=== PATIENT | female | born 1960 | race African-American/Black ===

== ENCOUNTER 2019-12-10 10:43 | Outpatient (REF) | payer OTHER, SELFPAY ==
--- NOTE | 2019-12-10 | MM_ITS ---
EXAMINATION: BONE DENSITOMETRY CLINICAL INDICATION: Encounter for screening for osteoporosis. COMPARISON: None (current study represents initial baseline exam). TECHNIQUE: Using a [employer] DXA System (software version: 13.1) manufactured by [employer], dual-energy x-ray absorptiometry was performed of the lumbar spine and left hip. The images are of good technical quality. Summary results are attached. FINDINGS: AP SPINE L1-L4: BMD 0.933 g/cm2, Z-score -1.5, T-score -2.1, osteopenia. LEFT FEMUR, NECK: BMD 0.767 g/cm2, Z-score -1.6, T-score -1.9, osteopenia. LEFT FEMUR, TOTAL: BMD 0.770 g/cm2, Z-score -1.9, T-score -1.9, osteopenia. IDENTIFIED RISK FACTORS: Secondary osteoporosis (part of stomach removed). Menopause. HISTORY OF FRACTURE: None listed. MEDICATIONS: Calcium supplement and/or multivitamin. Vitamin D. IMPRESSION: 1. DIAGNOSIS: Osteopenia based on the lowest T-score value of -2.1 in the lumbar spine applying World Health Organization criteria. 2. 10-YEAR FRACTURE RISK PREDICTION, FRAX: Major osteoporotic fracture (clinical spine, forearm, hip or shoulder) 4.2%. Hip fracture 0.5%. 3. Treatment Recommendations: NOF guidelines recommend consideration for treatment in postmenopausal women and men age 50 and older presenting with the following: -A hip or vertebral (clinical or morphometric) fracture. -T-score less than or equal to -2.5 at the femoral neck or spine after appropriate evaluation to exclude secondary causes. -Low bone mass at the hip or spine and a 10-year fracture probability by FRAX of greater than or equal to 3% for hip fracture or greater than or equal to 20% for major osteoporotic fracture based on the [place] adapted WHO algorithm. 4. Other Recommendations: All treatment decisions require clinical judgment and consideration of individual patient factors, including patient preferences, comorbidities, previous drug use, risk factors not captured in the FRAX model (e.g. frailty, falls, vitamin D deficiency, increased bone turnover, interval significant decline in bone density) and possible under or overestimation of fracture risk by FRAX. Additional medical evaluation for secondary cause of low bone mineral density may be appropriate. FUTURE SCAN RECOMMENDATION: People with diagnosed cases of osteoporosis or at high risk for fracture should have regular bone mineral density tests. For patients eligible for Medicare, routine testing is allowed once every 2 years. The testing frequency can be increased to one year for patients who have rapidly progressing disease, those who are receiving or discontinuing medical therapy to restore bone mass, or have additional risk factors.
== END 2019-12-10 10:44 | disposition home or self-care (01) ==
LOC: HO.MAMMO 10:43
PROVIDERS: Visit Provider Family Medicine
DX: Z13.820 Encounter for screening for osteoporosis (principal); M85.80 Other specified disorders of bone density and structure, unspecified site; Z98.84 Bariatric surgery status; Z79.899 Other long term (current) drug therapy
CPT/HCPCS: 77080

== ENCOUNTER → 2019-12-27 10:31 | Outpatient (BNVA) | payer OTHER, SELFPAY | PROVIDERS: Visit Provider Family Medicine Adult Medicine | DX: M53.3 Sacrococcygeal disorders, not elsewhere classified (principal); Z88.8 Allergy status to other drugs, medicaments and biological substances; Z79.899 Other long term (current) drug therapy | CPT/HCPCS: 99212 ==

== ENCOUNTER 2020-01-05 09:33 | Outpatient (REF) | payer OTHER, SELFPAY ==
--- NOTE | 2020-01-05 09:37 | MM_ITS ---
EXAMINATION: MM SCREENING DIGITAL BREAST TOMOSYNTHESIS, BILATERAL CLINICAL INFORMATION: Screening. Asymptomatic. The lifetime risk of breast cancer based on the Tyrer-Cuzick Model is 5%. COMPARISON: Mammography: 12/19/2017, 09/22/2016 TECHNIQUE: Digital breast tomosynthesis is performed in both the craniocaudal and mediolateral oblique views along with computer-aided detection (CAD). Synthesized 2D images are generated from the tomosynthesis. FINDINGS: There are scattered areas of fibroglandular density (ACR BI-RADS breast composition Category b). There is no developing density or interval mass or architectural abnormality. There are stable coarse grouped calcifications central 3:00 right breast and loosely grouped stable calcifications posterior upper outer left breast. Other benign calcifications are scattered in the breasts. The axilla and skin contours are unremarkable. MM/MM tomosynthesis screening BI IMPRESSION: No significant changes from prior studies. ASSESSMENT: BI-RADS 2: Benign RECOMMENDATION: Routine annual mammography screening. This patient's information was entered into a reminder system with a target due date for their next mammogram.
== END 2020-01-05 09:34 | disposition home or self-care (01) ==
LOC: HO.MAMMO 09:33
PROVIDERS: PCP Family Medicine; Visit Provider Family Medicine
DX: Z12.31 Encounter for screening mammogram for malignant neoplasm of breast (principal)
CPT/HCPCS: 77063; 77067

== ENCOUNTER 2020-01-14 13:32 | Outpatient (REF) | payer OTHER, SELFPAY ==
[2020-01-17 12:47] LABS: HPV mRNA E6/E7 Detected (Not Detected)
== END 2020-01-14 13:33 | disposition home or self-care (01) ==
LOC: HO.LAB 13:32
PROVIDERS: Visit Provider Obstetrics & Gynecology
DX: Z01.419 Encounter for gynecological examination (general) (routine) without abnormal findings (principal)
CPT/HCPCS: 87624; 88141; 88142

== ENCOUNTER 2020-03-04 13:23 | Outpatient (REF) | payer OTHER, SELFPAY | END 2020-03-04 13:24 | disposition home or self-care (01) | LOC: HO.LAB 13:23 | PROVIDERS: Visit Provider Obstetrics & Gynecology | DX: R87.810 Cervical high risk human papillomavirus (HPV) DNA test positive (principal) | CPT/HCPCS: 57456; 88300 ==

== ENCOUNTER → 2020-03-18 11:50 | Outpatient (BNVA) | payer OTHER, SELFPAY | PROVIDERS: Visit Provider Obstetrics & Gynecology | DX: R87.810 Cervical high risk human papillomavirus (HPV) DNA test positive (principal) | CPT/HCPCS: Q3014 ==

== ENCOUNTER 2021-01-19 15:22 | Outpatient (REF) | payer OTHER, SELFPAY ==
--- NOTE | ~2021-01-19 | MM_ITS ---
EXAMINATION: MM SCREENING DIGITAL BREAST TOMOSYNTHESIS, BILATERAL CLINICAL INFORMATION: Screening. Asymptomatic. The lifetime risk of breast cancer based on the Tyrer-Cuzick Model is 5%. COMPARISON: Mammography: 01/05/2020, 12/19/2017, 09/22/2016 TECHNIQUE: Digital breast tomosynthesis is performed in both the craniocaudal and mediolateral oblique views along with computer-aided detection (CAD). Synthesized 2D images are generated from the tomosynthesis. Additional left MLO and exaggerated left CC views are provided. FINDINGS: There are scattered areas of fibroglandular density (ACR BI-RADS breast composition Category b). Parenchymal pattern is similar to prior exam. There is no developing density or interval significant mass or architectural abnormality. There are some scattered calcifications stable to decreased mid to posterior outer left breast. Benign grouped calcifications posterior central 3:00 right breast are again noted. The axilla and skin contours are unremarkable. MM/MM tomosynthesis screening BI IMPRESSION: No mammographic evidence of malignancy. ASSESSMENT: BI-RADS 2: Benign RECOMMENDATION: Routine annual mammography screening. This patient's information was entered into a reminder system with a target due date for their next mammogram.
== END 2021-01-19 15:23 | disposition home or self-care (01) ==
LOC: HO.MAMMO 15:22
PROVIDERS: PCP Internal Medicine; Visit Provider Family Medicine
DX: Z12.31 Encounter for screening mammogram for malignant neoplasm of breast (principal)
CPT/HCPCS: 77063; 77067

== ENCOUNTER 2021-07-24 07:45 | Outpatient (REF) | payer OTHER, SELFPAY ==
[2021-07-24 11:42] LABS: MANUAL DIFF FLAG NO
[2021-07-24 11:46] LABS: Basophils Percent Auto 0.4 % (0-2); Eosinophils Absolute Auto 0.1 X10*3/uL (0.0-0.4); Eosinophils Percent Auto 1.7 % (0-4); Hematocrit 37.3 % (37.0-47.0); Hemoglobin 11.6 g/dl (12.0-16.0); Lymphocytes Percent Auto 42.6 % (20-40); Mean Corpuscular HGB Conc 31.1 g/dl (31.0-35.0); Mean Corpuscular Volume 83.4 fL (80.0-98.0); Mean Platelet Volume 12.7 fL (9.4-12.3); Monocytes Absolute Auto 0.5 X10*3/uL (0.1-1.2); Monocytes Percent Auto 9.8 % (2-11); Neutrophils Absolute Auto 2.1 x10*3/uL (2.0-8.3); Neutrophils Percent Auto 45.5 % (45-73); Platelet Count 179 X10*3/uL (160-400); Red Blood Count 4.47 X10*6/uL (4.20-5.50); Red Cell Distribution Width 15.1 % (11.0-16.0); White Blood Count 4.7 X10*3/uL (4.8-10.8)
[2021-07-24 11:52] LABS: Appearance Urine HAZY; Color Urine YELLOW; Glucose Urine UA NEG (NEG); Leukocyte Esterase Urine 1+ (NEG); Nitrite Urine POS (NEG); PH 5.5 (5.0-8.0); Specific Gravity - Urine >= 1.030 (1.005-1.025); Urine Blood TRACE (NEG); Urine Ketones NEG (NEG); Urine Protein NEG (NEG-TRACE)
[2021-07-24 12:08] LABS: Bacteria Urine 2+ /LPF; Squamous Epithelial Cell Urine 1+ /LPF
[2021-07-24 12:14] LABS: TSH reflex Free T4 1.05 uIU/mL (0.32-4.0)
[2021-07-24 12:21] LABS: Alanine Aminotransferase 37 U/L (0-31); Albumin Level 3.9 g/dL (3.5-5.0); Alkaline Phosphatase 89 U/L (39-117); Anion Gap 10 (12-20); Aspartate Amino Transferase 32 U/L (5-31); Bilirubin Total 0.9 mg/dL (0.0-1.0); Blood Urea Nitrogen 14 mg/dL (9-16); Calcium 9.1 mg/dL (8.4-10.2); Carbon Dioxide 23 mmol/L (22-29); Chloride 110 mmol/L (96-108); Cholesterol 218 mg/dL; Estimated Glomerular Filt Rate > 60; Glucose Fasting 88 mg/dL (60-99); HDL Cholesterol 83 mg/dL; LDL Cholesterol Calculated 122 mg/dl; Potassium 4.3 mmol/L (3.3-5.1); Sodium 139 mmol/L (135-145); Total Protein 7.2 g/dL (6.5-8.0); Triglycerides 68 mg/dL
== END 2021-07-24 07:46 | disposition home or self-care (01) ==
LOC: HO.WFDLDS 07:45
PROVIDERS: Visit Provider Family Medicine
DX: Z00.00 Encounter for general adult medical examination without abnormal findings (principal)
CPT/HCPCS: 36415; 80053; 80061; 81001; 84443; 85025

== ENCOUNTER 2021-08-10 13:24 | Outpatient (RCR) | payer OTHER, SELFPAY ==
[2021-08-10 14:00] VITALS: BP 155/78; PULSE 58; O2SAT 98
== END 2021-09-11 11:31 | disposition home or self-care (01) ==
LOC: HO.PTWFD 13:24
PROVIDERS: PCP Family Medicine; Visit Provider Family Medicine
DX: R42 Dizziness and giddiness (principal)
CPT/HCPCS: 97161

== ENCOUNTER 2021-11-18 07:53 | Outpatient (REF) | payer OTHER, SELFPAY ==
[2021-11-18 11:23] LABS: Appearance Urine Cloudy; Color Urine Yellow; Glucose Urine UA Negative (Negative); Leukocyte Esterase Urine Small (1+) (Negative); Nitrite Urine Positive (Negative); Specific Gravity - Urine 1.025 (1.005-1.025); UMIC TRIGGER UA YES; Urine Blood Negative (Negative); Urine Ketones Negative (Negative); Urine Protein Negative (Neg-Trace)
[2021-11-18 11:25] LABS: MANUAL DIFF FLAG NO
[2021-11-18 11:26] LABS: Basophils Percent Auto 0.6 % (0-2); Eosinophils Percent Auto 0.8 % (0-4); Hematocrit 37.9 % (37.0-47.0); Imm Gran Abs Auto 0.02 X10*3/uL (0.00-0.03); Imm Gran Pct Auto 0.4 % (0.0-0.4); Lymphocytes Absolute Auto 1.9 X10*3/uL (1.2-4.9); Lymphocytes Percent Auto 38.9 % (20-40); Mean Corpuscular HGB Conc 31.7 g/dl (31.0-35.0); Mean Corpuscular Hemoglobin 26.5 pg (27.0-33.0); Mean Corpuscular Volume 83.7 fL (80.0-98.0); Mean Platelet Volume 12.7 fL (9.4-12.3); Monocytes Absolute Auto 0.5 X10*3/uL (0.1-1.2); Monocytes Percent Auto 9.6 % (2-11); Neutrophils Absolute Auto 2.4 x10*3/uL (2.0-8.3); Neutrophils Percent Auto 49.7 % (45-73); Platelet Count 178 X10*3/uL (160-400); Red Blood Count 4.53 X10*6/uL (4.20-5.50); Red Cell Distribution Width 15.4 % (11.0-16.0); White Blood Count 4.9 X10*3/uL (4.8-10.8)
[2021-11-18 11:52] LABS: Bacteria Urine 2+ (None Seen); Hyaline Casts Urine 0-2 /LPF (0-2); Other Crystals Urine Present; RBC Urine 0-2 /HPF (0-2); Squamous Epithelial Cell Urine 0-2 /HPF (0-2)
[2021-11-18 12:01] LABS: Creatinine Urine 150.46 mg/dL; Microalbum/Creatinine Ratio Ur 5.9 ug/mg cr
[2021-11-18 12:02] LABS: Alanine Aminotransferase 19 U/L (0-31); Albumin Level 4.2 g/dL (3.5-5.0); Alkaline Phosphatase 62 U/L (39-117); Anion Gap 12 (12-20); Aspartate Amino Transferase 18 U/L (5-31); Bilirubin Total 1.1 mg/dL (0.0-1.0); Blood Urea Nitrogen 13 mg/dL (9-16); Carbon Dioxide 24 mmol/L (22-29); Chloride 109 mmol/L (96-108); Cholesterol 227 mg/dL; Estimated Glomerular Filt Rate > 60; Glucose Fasting 87 mg/dL (60-99); HDL Cholesterol 84 mg/dL; LDL Cholesterol Calculated 131 mg/dl; Potassium 4.4 mmol/L (3.3-5.1); Sodium 141 mmol/L (135-145); Total Protein 7.2 g/dL (6.5-8.0); Triglycerides 60 mg/dL
[2021-11-18 12:05] LABS: TSH reflex Free T4 0.79 uIU/mL (0.32-4.0)
== END 2021-11-18 07:54 | disposition home or self-care (01) ==
LOC: HO.WFDLDS 07:53
PROVIDERS: Visit Provider Family Medicine
DX: Z00.00 Encounter for general adult medical examination without abnormal findings (principal); I10 Essential (primary) hypertension
CPT/HCPCS: 36415; 80053; 80061; 81001; 82043; 84443; 85025

== ENCOUNTER 2021-12-09 10:23 | Outpatient (REF) | payer OTHER, SELFPAY ==
[2021-12-09 12:25] LABS: Appearance Urine Clear; Color Urine Yellow; Glucose Urine UA Negative (Negative); Leukocyte Esterase Urine Small (1+) (Negative); Nitrite Urine Positive (Negative); PH 5.5 (5.0-9.0); UMIC TRIGGER UA YES; Urine Blood Negative (Negative); Urine Ketones Negative (Negative); Urine Protein Negative (Neg-Trace)
[2021-12-09 12:41] LABS: Bacteria Urine 4+ (None Seen); Hyaline Casts Urine 0-2 /LPF (0-2); RBC Urine 0-2 /HPF (0-2); Squamous Epithelial Cell Urine 0-2 /HPF (0-2); WBC Urine 0-5 /HPF (0-5)
== END 2021-12-09 10:24 | disposition home or self-care (01) ==
LOC: HO.WFDLNP 10:23
PROVIDERS: Visit Provider Family Medicine
DX: R82.71 Bacteriuria (principal)
CPT/HCPCS: 81001; 81003; 87086

== ENCOUNTER 2022-05-15 09:42 | Outpatient (REF) | payer OTHER, SELFPAY ==
--- NOTE | ~2022-05-15 | MM_ITS ---
EXAMINATION: MM SCREENING DIGITAL BREAST TOMOSYNTHESIS, BILATERAL CLINICAL INFORMATION: Screening. Asymptomatic. The lifetime risk of breast cancer based on the Tyrer-Cuzick Model is 4%. COMPARISON: Mammography: 01/19/2021, 01/05/2020, 12/19/2017 TECHNIQUE: Digital breast tomosynthesis is performed in both the craniocaudal and mediolateral oblique views along with computer-aided detection (CAD). Synthesized 2D images are generated from the tomosynthesis. FINDINGS: There are scattered areas of fibroglandular density (ACR BI-RADS breast composition Category b). There are no significant masses, abnormal calcifications, or other abnormalities. No architectural abnormality or developing density or significant change from prior studies. Again, there are benign grouped coarse calcifications posterior central right breast and other bilateral benign scattered calcifications. The axilla and skin contours are unremarkable. MM/MM tomosynthesis screening BI IMPRESSION: No mammographic evidence of malignancy. ASSESSMENT: BI-RADS 2: Benign RECOMMENDATION: Routine annual mammography screening. This patient's information was entered into a reminder system with a target due date for their next mammogram.
== END 2022-05-15 09:43 | disposition home or self-care (01) ==
LOC: HO.MAMMO 09:42
PROVIDERS: Visit Provider Internal Medicine
DX: Z12.31 Encounter for screening mammogram for malignant neoplasm of breast (principal)
CPT/HCPCS: 77063; 77067

== ENCOUNTER → 2022-07-07 13:55 | Outpatient (REF) | payer OTHER, SELFPAY ==
--- NOTE | 2022-07-07 13:58 | CA_ITS ---
Transthoracic Echocardiogram Amended Patient (Last, First, Middle): Angy Leung, Gender: Female Date of : 1960 Age: 61 Procedure Date: 07/07/2022 Procedure Type: Transthoracic Echocardiogram Location: OP Height: 152.4 cm Weight: 54.43 kg BSA: 1.50 m2 Heart Rate: 59 bpm BP: 118 / 70 mmHg Waist Presser: SB Referring MD: Parag Ledezma MD Symptoms: R01.1 - Cardiac murmur, unspecified Study Quality: Adequate ECG Rhythm: Sinus Conclusions: - The left ventricular systolic function is normal. The visually estimated ejection fraction is between 60-65%. - No obvious valvular pathology seen on this study. Findings Left Ventricle Normal left ventricular cavity size. There is normal left ventricular wall thickness. The left ventricular systolic function is normal. The visually estimated ejection fraction is between 60-65%. There is no evidence of regional wall motion abnormalities. Diastolic function is normal for age. LV peak GLS -20.8%. Right Ventricle Normal right ventricular cavity size and systolic function. Atria Both atria are normal in size. Aortic Valve There is a normal trileaflet aortic valve. There is no aortic valve stenosis. There is no aortic valve regurgitation. Mitral Valve The mitral valve appears normal. There is trace mitral valve regurgitation. There is no mitral valve stenosis. Pulmonic Valve There is trace pulmonic valve regurgitation. Tricuspid Valve Normal tricuspid valve structure. There is mild tricuspid valve regurgitation. There is no evidence of pulmonary hypertension. Great Vessels The asc aorta is normal in size. Venous The inferior vena cava is normal in size and collapses greater than 50% with inspiration. Pericardium/Pleural There is no evidence of pericardial effusion. Prior Study Comparison No significant change compared to prior study dated: 02/05/2015. Recommendations, Care & Conclusions No obvious valvular pathology seen on this study. Measurements 2D Linear Measurements IVSd: 0.93 0.6-0.9/0.6-1.0 cm LVIDd: 4.43 3.9-5.3/4.2-5.9 cm LVIDd Index: 2.95 2.4-3.2/2.2-3.1 cm/m2 LVIDs: 2.45 2.0-3.6 cm LVPWd: 0.69 0.7-1.1 cm LA Diam: 3.10 2.7-3.8/3.0-4.0 cm LAIDs Index: 2.07 1.5-2.3 cm/m2 LV Mass: 139.66 67-162/88-224 g LV Mass Index: 93.11 43-95/49-115 g/m2 LVOT Diam: 1.90 3.0+(-)1.3 cm 2D Volumes LA Vol: 26.70 2D Systolic Function EF 4C: 54.10 >55% EF 2C: 61.10 >55% EF BiP: 56.70 >55% Mitral Valve MV Pk E: 1.13 MV PK A: 1.25 MV Decel Time: 168.00 E/A: 0.90 E'Lateral: 9.14 E'Medial: 7.72 E/E' Med: 14.60 E/E' Lat: 12.40 PHT: 49.00 MVA PHT: 4.49 Decel Yellow [place]: 6.74 Aortic Valve AoV Pk Maco: 1.42 AoV Mn Maco: 1.02 AoV VTI: 0.35 AoV Pk Grad: 8.00 Aov Mn Grad: 5.00 OMAR Cont.VTI: 1.71 LVOT LVOT Pk Maco: 0.94 LVOT Mn Maco: 0.64 LVOT VTI: 0.21 LVOT Pk Grad: 4.00 LVOT Mn Grad: 2.00 LVOT Diam: 1.90 LVOT Area: 2.84 Diastolic Function MV Pk E: 1.13 MV Pk A: 1.25 E/A: 0.90 E'Medial: 7.72 E/E' Med: 14.60 E' Laterial: 9.14 E/E' Lat: 12.40 Right Ventricle TAPSE (mm): 21.90 TVS' Maco: 13.20 Tricuspid Valve TR Pk Maco: 2.15 TR Pk Grad: 18.00 RA Press: 3.00 RVSP: 21.00 Great Vessels Aorta Sinus of Valsalva: 2.60 2.0-3.5 cm Ao Asc: 3.10 2.1-3.4 cm Ao Desc: 1.80 Pulmonary Veins Pulm Vein S/D 1.30 Pulmonary Valve PV Pk Maco: 0.86 Peak PV Grad: 3.00 Updated in Other Vendor System with Status of Final Shawn Mittal MD electronically signed on 07/07/2022 3:41:30 PM with status of Final
== END ==
LOC: HO.CARD 13:55
PROVIDERS: PCP Family Medicine; Visit Provider Family Medicine
DX: R01.1 Cardiac murmur, unspecified (principal)
CPT/HCPCS: 93306; 93356

== ENCOUNTER → 2022-07-20 10:36 | Outpatient (BNVA) | payer OTHER, SELFPAY | PROVIDERS: PCP Family Medicine; Visit Provider Nurse Practitioner Family | DX: N20.0 Calculus of kidney (principal) | CPT/HCPCS: 99202 ==

== ENCOUNTER 2022-08-11 12:01 | Outpatient (REF) | payer OTHER, SELFPAY ==
[2022-08-11 12:21] LABS: MANUAL DIFF FLAG NO
[2022-08-11 13:24] LABS: Basophils Percent Auto 0.4 % (0-2); Eosinophils Absolute Auto 0.1 X10*3/uL (0.0-0.4); Eosinophils Percent Auto 1.3 % (0-4); Hematocrit 39.9 % (37.0-47.0); Hemoglobin 12.6 g/dl (12.0-16.0); Imm Gran Abs Auto 0.01 X10*3/uL (0.00-0.03); Imm Gran Pct Auto 0.1 % (0.0-0.4); Lymphocytes Absolute Auto 2.6 X10*3/uL (1.2-4.9); Lymphocytes Percent Auto 34.8 % (20-40); Mean Corpuscular HGB Conc 31.6 g/dl (31.0-35.0); Mean Corpuscular Hemoglobin 26.9 pg (27.0-33.0); Mean Corpuscular Volume 85.1 fL (80.0-98.0); Mean Platelet Volume 12.1 fL (9.4-12.3); Monocytes Absolute Auto 0.5 X10*3/uL (0.1-1.2); Monocytes Percent Auto 6.7 % (2-11); Neutrophils Absolute Auto 4.3 x10*3/uL (2.0-8.3); Neutrophils Percent Auto 56.7 % (45-73); Platelet Count 226 X10*3/uL (160-400); Red Blood Count 4.69 X10*6/uL (4.20-5.50); Red Cell Distribution Width 14.8 % (11.0-16.0); White Blood Count 7.6 X10*3/uL (4.8-10.8)
[2022-08-11 14:24] LABS: Alanine Aminotransferase 23 U/L (0-31); Albumin Level 3.8 g/dL (3.5-5.0); Alkaline Phosphatase 69 U/L (39-117); Anion Gap 13 (12-20); Aspartate Amino Transferase 25 U/L (5-31); Bilirubin Total 0.7 mg/dL (0.0-1.0); Blood Urea Nitrogen 16 mg/dL (9-16); Calcium 9.6 mg/dL (8.4-10.2); Carbon Dioxide 24 mmol/L (22-29); Chloride 109 mmol/L (96-108); Cholesterol 217 mg/dL; Estimated Glomerular Filt Rate > 60; Glucose Fasting 102 mg/dL (60-99); HDL Cholesterol 83 mg/dL; LDL Cholesterol Calculated 121 mg/dl; Potassium 4.5 mmol/L (3.3-5.1); Sodium 141 mmol/L (135-145); Total Protein 7.3 g/dL (6.5-8.0); Triglycerides 65 mg/dL
[2022-08-11 14:39] LABS: TSH reflex Free T4 0.67 uIU/mL (0.32-4.0)
[2022-08-11 15:35] LABS: Appearance Urine Clear; Color Urine Yellow; Glucose Urine UA Negative (Negative); Leukocyte Esterase Urine Small (1+) (Negative); Nitrite Urine Negative (Negative); Specific Gravity - Urine 1.025 (1.005-1.025); UMIC TRIGGER UA YES; Urine Blood Negative (Negative); Urine Ketones Negative (Negative); Urine Protein Negative (Neg-Trace)
[2022-08-11 15:46] LABS: Bacteria Urine None Seen (None Seen); Hyaline Casts Urine 0-2 /LPF (0-2); RBC Urine 0-2 /HPF (0-2); Squamous Epithelial Cell Urine 0-2 /HPF (0-2); WBC Urine 0-5 /HPF (0-5)
[2022-08-11 17:01] LABS: Creatinine Urine 136.94 mg/dL; Microalbum/Creatinine Ratio Ur 5.8 ug/mg cr
== END 2022-08-11 12:02 | disposition home or self-care (01) ==
LOC: HO.LAB 12:01
PROVIDERS: PCP Family Medicine; Visit Provider Family Medicine
DX: Z00.00 Encounter for general adult medical examination without abnormal findings (principal); R53.83 Other fatigue; I10 Essential (primary) hypertension
CPT/HCPCS: 36415; 80053; 80061; 81001; 82043; 84443; 85025

== ENCOUNTER 2022-08-11 14:10 | Outpatient (REF) | payer OTHER, SELFPAY ==
[2022-08-14 00:59] LABS: HPV mRNA E6/E7 rflx Not Detected (Not Detected)
== END 2022-08-11 14:11 | disposition home or self-care (01) ==
LOC: HO.LNP 14:10
PROVIDERS: Visit Provider Advanced Practice Midwife
DX: Z01.419 Encounter for gynecological examination (general) (routine) without abnormal findings (principal); Z11.51 Encounter for screening for human papillomavirus (HPV)
CPT/HCPCS: 87624; 88142

== ENCOUNTER 2022-08-27 13:55 | Outpatient (REF) | payer OTHER, SELFPAY ==
--- NOTE | ~2022-08-27 | US_ITS ---
EXAMINATION: US RETROPERITONEAL LIMITED (RENAL ONLY) CLINICAL INFORMATION: Calculus of kidney. COMPARISON: Ultrasound abdomen complete 07/08/2015. TECHNIQUE: Real-time imaging of the kidneys. Exam severely limited by bowel gas and rib shadowing. FINDINGS: RIGHT KIDNEY: 7.7 x 5.3 cm (SAG x AP). Technically limited views of the kidney. Kidney appears atrophic. Normal parenchymal echogenicity. No renal calculi or hydronephrosis. Likely benign renal cyst measuring 1.5 cm with a thin internal septation. No follow up imaging is recommended. LEFT KIDNEY: 7.0 x 4.1 x 3.5 cm (SAG x AP x TRV). Technically limited views of the kidney. Kidney appears atrophic and is suboptimally evaluated. Stones, hydronephrosis and parenchymal lesions cannot be excluded. US/US renal BI IMPRESSION: Technically limited views of the kidneys. Kidney appears atrophic and are suboptimally evaluated, left greater than right. No right nephrolithiasis or hydronephrosis. On the left, stones, hydronephrosis and parenchymal lesions cannot be excluded.
== END 2022-08-27 13:56 | disposition home or self-care (01) ==
LOC: HO.US 13:55
PROVIDERS: PCP Family Medicine; Visit Provider Nurse Practitioner Family
DX: N20.0 Calculus of kidney (principal)
CPT/HCPCS: 76775

== ENCOUNTER 2022-09-01 14:20 | Outpatient (AMB) | payer OTHER, SELFPAY ==
--- NOTE | 2022-09-01 14:36 | A.OFFVIS_ITS ---
Intake Intake Visit Reasons: 6w/US(pending 08/27) Intake Note: Patient is present for follow up ultrasound/kidney stone Urology Medications: none Blood Thinner: none Explosive Ordnance Handler Required: No Accompanied by: Self / Same As Patient Allergies ibuprofen [IBUPROFEN] Allergy (Intermediate, Verified 09/02/22 09:58) HIVES Medication List - Last Reconciled 09/02/22 by SHAR Lopez amitriptyline 50 mg PO BEDTIME 30 days bupropion HCl 37.5 mg (1/2 x 75 mg) PO BID 30 days ferrous sulfate 325 mg PO DAILY multivitamin 1 tab PO DAILY 1 month sertraline 50 mg PO DAILY HPI HPI Comments History of Present Illness Details Elana is a pleasant 61 year old female patient of . She has a past medical history of anxiety, depression, vertigo, fatigue, and difficulty sleeping. She presents to the office today for follow- up. Of note, patient was previously seen approximately 6 weeks ago as a new patient for nephrolithiasis at which time a renal ultrasound was ordered for further assessment evaluation. These results were reviewed with the patient today. Technically limited views of the kidneys. Kidney appears atrophic and are suboptimally evaluated, left greater than right. No right nephrolithiasis or hydronephrosis. On the left, stones, hydronephrosis and parenchymal lesions cannot be excluded. It appears 3 mm right renal stone from CT obtained through [facility] during patient's ER visit has since passed. She reports to be doing and feeling much better. When asked she denies urinary urgency, urinary frequency, incontinence, nocturia, hematuria, dysuria, foul smelling urine, changes to urinary stream, flank pain, fever, and or chills. She is happy with her current voiding parameters. She reports this to be her first episode of nephrolithiasis. Discussed at length importance of drinking plenty of water daily. Discussed nephrolithiasis workup with 24 hour urine and labs. In office urinalysis results reviewed with the patient today. She otherwise denies any issues or concerns at this time. [facility] Medical History Coccyxdynia Well woman exam Surgical History History of gastric bypass Family History Mother Colon cancer Father Myocardial infarction Substance use disorder Brother Substance use disorder Social History Housing: Condominium Alcohol intake: current Alcohol intake frequency: holidays/special occasions only Patient Tobacco Use Status: Never used Tobacco e-Cigarette/Vaping Use: Never Used Second Hand Smoke Exposure: No service: No Current occupational status: unemployed Current occupational exposures/hazards: No Sexual orientation: Straight/Heterosexual Gender identity: Female Cognitive needs: No Hearing needs: No Vision needs: No Review of Systems Const Reports as per HPI Eyes Reports no additional complaints ENT Reports as per HPI Card Reports no additional complaints Resp Reports no additional complaints GI Reports no additional complaints Reports as per HPI Musc Reports no additional complaints Neuro Reports no additional complaints Psych Reports as per HPI Endo Reports no additional complaints Edward/Lymph Reports no additional complaints Aller/Immun Reports no additional complaints Physical Exam Const General: cooperative, healthy appearing, comfortable, no acute distress, well developed, alert and awake Orientation/consciousness: patient oriented x3 Limitations: no limitations HEENT Head: Yes normal to inspection, Yes normocephalic and Yes atraumatic Ears: hearing grossly normal bilaterally Eyes General: appearance normal, both eyes and all related structures Neck Neck: Yes normal visual inspection and Yes trachea midline Chest Chest palpation & inspection: normal inspection of the chest Resp Effort & Inspection: normal respiratory effort and able to speak in complete sentences Cardio Rate: regular rate GI Inspection: Yes normal to inspection General: Yes no CVA tenderness Back/Spine/Pelvis Back: no CVA tenderness Skin General skin exam: no rashes or lesions noted Neuro General: patient oriented x3 Extrem General: Yes normal to inspection Psych Appearance: grossly normal and well kempt Mental Status: mental status grossly normal Speech and movement: Normal speech and movement present and Clear speech present Affect: normal affect Attitude: cooperative Thought process: Normal thought process present Thought content: Normal thought content present Insight: Good insight present (Psych) Judgement: Good judgement present (Psych) Results AMB Urinalysis, Automated UA Leukoctes 70 Leobardo/uL Last Edit by Mulugeta Peres on 09/01/22 14:59 UA Nitrite Negative Last Edit by Mulugeta Peres on 09/01/22 14:59 UA Urobilinogen 0.2 mg/dL Last Edit by Mulugeta Peres on 09/01/22 14:59 UA Protein 0 mg/dL Last Edit by Mulugeta Peres on 09/01/22 14:59 UA pH 6.0 Last Edit by Mulugeta Peres on 09/01/22 14:59 UA Blood 0 Gurmeet/uL Last Edit by Mulugeta Peres on 09/01/22 14:59 UA Specific [place] 1.030 Last Edit by Mulugeta Peres on 09/01/22 14:59 UA Ketone Negative Last Edit by Mulugeta Peres on 09/01/22 14:59 UA Bilirubin 0 mg/dL Last Edit by Mulugeta Peres on 09/01/22 14:59 UA Glucose 0 mg/dL Last Edit by Mulugeta Peres on 09/01/22 14:59 Results Reviewed Results Reviewed: Laboratory Last Values Urine pH (Auto) 6.0 09/01/22 14:39 Specific [place] (Auto) 1.030 09/01/22 14:39 Urine Protein (Auto) 0 mg/dL 09/01/22 14:39 Glucose (UA)(Auto) 0 mg/dL 09/01/22 14:39 Urine Ketones (Auto) Negative 09/01/22 14:39 Urine Blood (Auto) 0 Gurmeet/uL 09/01/22 14:39 Urine Nitrite (Auto) Negative 09/01/22 14:39 Urine Bilirubin (Auto) 0 mg/dL 09/01/22 14:39 Urine Urobilinogen (Auto) 0.2 mg/dL 09/01/22 14:39 Leukocyte Esterase (Auto) 70 Leobardo/uL 09/01/22 14:39 Date of Service: 08/27/22 EXAMINATION: US RETROPERITONEAL LIMITED (RENAL ONLY) FINDINGS: RIGHT KIDNEY: 7.7 x 5.3 cm (SAG x AP). Technically limited views of the kidney. Kidney appears atrophic. Normal parenchymal echogenicity. No renal calculi or hydronephrosis. Likely benign renal cyst measuring 1.5 cm with a thin internal septation. No follow up imaging is recommended. LEFT KIDNEY: 7.0 x 4.1 x 3.5 cm (SAG x AP x TRV). Technically limited views of the kidney. Kidney appears atrophic and is suboptimally evaluated. Stones, hydronephrosis and parenchymal lesions cannot be excluded. IMPRESSION: Technically limited views of the kidneys. Kidney appears atrophic and are suboptimally evaluated, left greater than right. No right nephrolithiasis or hydronephrosis. On the left, stones, hydronephrosis and parenchymal lesions cannot be excluded. Assessment & Plan Assessment & Plan (1) Renal cyst: Code(s): N28.1 - Cyst of kidney, acquired (2) Kidney stones: Code(s): N20.0 - Calculus of kidney Plan In office urinalysis results reviewed with the patient today; as noted above. Recent renal ultrasound results reviewed with the patient today; as noted above. Discussed at length importance of drinking plenty of water daily. Discussed adding 1 oz of lemon juice to water daily. Discussed nephrolithasis work up to include 24 urine and labs however patient declines at this time. Discussed limiting soda products and importance in doing so. Patient denies any urological issues or concerns at this time. Patient reports be happy with current voiding parameters. Renal ultrasound in 6 months. Follow-up in 6 months with imaging to be completed prior; or sooner with any issues, concerns, and or questions. Orders: Orders US renal BI 6 Months N20.0 - Calculus of kidney, N28.1 - Cyst of kidney, acquired AMB Urinalysis Automated 09/01/22 Z13.9 - Encounter for screening, unspecified Patient Instructions: The patient had an opportunity to ask questions regarding the treatment plan. All questions were answered. Physical exam, labs, and imaging were discussed and reviewed in detail. As well as risks, benefits, and discussion of treatment choices. No major barriers to understanding were identified. The patient expressed understanding and agreement with the above treatment plan. The patient was made aware they should contact our office by phone for worsening of their current condition, the appearance of new symptoms, or with any questions or concerns. Compliance is encouraged with any medications and follow up testing that is ordered. It is a privilege to be allowed the opportunity to participate in? your urological care.? Again, if you have any questions or concerns If you have any questions or concerns please do not hesitate to contact me. The office is [phone]. This note is constructed using voice recognition software. While every effort has been made to ensure accuracy hostler helper errors may have been included. Yours sincerely, SHAR Lopez Coding Level of Care Code Est Pt Level 3 (22951) Diagnoses Renal cyst N28.1 Kidney stones N20.0
== END 2022-09-01 15:09 | disposition home or self-care (01) ==
PROVIDERS: Visit Provider Nurse Practitioner Family
DX: N28.1 Cyst of kidney, acquired (principal); N20.0 Calculus of kidney
CPT/HCPCS: 99213

== ENCOUNTER → 2022-09-01 14:20 | Outpatient (BNVA) | payer OTHER, SELFPAY | PROVIDERS: Visit Provider Nurse Practitioner Family | DX: N20.0 Calculus of kidney (principal); N28.1 Cyst of kidney, acquired | CPT/HCPCS: 99212 ==

== ENCOUNTER 2022-09-07 08:14 | Outpatient (REF) | payer OTHER, SELFPAY ==
[2022-09-07 11:02] LABS: Vitamin D 25-OH Total 23.2 ng/mL (>30)
[2022-09-07 11:15] LABS: Folate 13.8 ng/mL (> or = 4.0); Vitamin B12 381 pg/mL (200-900)
[2022-09-11 00:54] LABS: Zinc 76 mcg/dL (60-130)
[2022-09-12 10:28] LABS: Vitamin B1 16 nmol/L (8-30)
[2022-09-13 14:58] LABS: Calcium (PTHI) 9.3 mg/dL (8.6-10.4); PTHI 50 pg/mL (16-77)
[2022-09-15 03:38] LABS: Vitamin A 31 mcg/dL (38-98)
== END 2022-09-07 08:15 | disposition home or self-care (01) ==
LOC: HO.LAB 08:14
PROVIDERS: PCP Family Medicine; Visit Provider Physician Assistant Surgical
DX: Z98.84 Bariatric surgery status (principal); Z71.3 Dietary counseling and surveillance; Z79.899 Other long term (current) drug therapy
CPT/HCPCS: 36415; 82306; 82607; 82746; 83970; 84425; 84590; 84630; 99212

== ENCOUNTER 2022-09-07 08:14 | Outpatient (AMB) | payer OTHER, SELFPAY ==
--- NOTE | 2022-09-07 08:21 | MHC.OFFVISWM ---
Intake VS Expanded 09/07/22 08:31 Height 5 ft Weight 120 lb 3.2 oz BMI 23.5 BP 171/78 H Blood Pressure Location Rt brachial Blood Pressure Position Sitting Pulse 61 Pulse Source Pulse Oximeter Temp 97.4 F Temperature Source Temporal Artery Scan Pulse Oximetry 61 L Oxygen Delivery Method Room Air Body Fat 39.6 Body Fat Percentage 33.0 Free Fat Mass 80.4 Muscle Mass 76.2 Visceral Mass 7.0 Water Mass 56.6 BMR 1,108 Intake Visit Reasons: (ov) PO LRYGB 09/26/15 Allergies ibuprofen [IBUPROFEN] Allergy (Intermediate, Verified 09/07/22 08:29) HIVES Medication List - Last Reconciled 09/07/22 by RAULITO Cintron amitriptyline 50 mg PO BEDTIME 30 days bupropion HCl 37.5 mg (1/2 x 75 mg) PO BID 30 days ferrous sulfate 325 mg PO DAILY multivitamin 1 tab PO DAILY 1 month sertraline 50 mg PO DAILY HPI HPI Comments History of Present Illness Details This?is a?61?yo female who is s/p RYGB 09/26/2015. Presents for 7 year post op visit. Weight today is 120.2 pounds, with a BMI today of 23.5.? No complaints of nausea, emesis, abdominal pain or reflux, or constipation. Present meal plan includes: uses regular food, no supplements breakfast- turkey sausage and 1 egg lunch varies but tries to get protein in dinner- protein and salad enjoys fruits and vegetables taking MVI does a lot of meal prep Exercise routine includes: was going to , but recently started with episodes of vertigo; waiting to see specialist; has not been exercising the last few months Did the patient ever have any of these conditions and are they resolved or still being treated? GERD: resolved KLAUS:? never DM:? never? HTN:? resolved Hyperlipidemia:?resolved Post op complications:? none Heartburn symptoms? none Score 0-5: 0=no symptoms, 1=noticeable but not bothersome (slight or occasional), 2=noticeable, bothersome but not daily, 3=bothersome and daily, 4=affects daily activities, 5=incapacitating, unable to do daily activities How bad is the heartburn: 0 Heartburn when lying down: 0 Heartburn when standing up: 0 Heartburn after meals: 0 Does heartburn change your diet: 0 Does heartburn wake you up from sleep: 0 Do you have difficulty swallowin Do you have pain with swallowin If you take medication for reflux, does this affect your daily life: 0 Total score: 0 PFSH Medical History Coccyxdynia Well woman exam Surgical History History of gastric bypass Family History Mother Colon cancer Father Myocardial infarction Substance use disorder Brother Substance use disorder Social History Housing: Condominium Alcohol intake: current Alcohol intake frequency: holidays/special occasions only Patient Tobacco Use Status: Never used Tobacco e-Cigarette/Vaping Use: Never Used Second Hand Smoke Exposure: No service: No Current occupational status: unemployed Current occupational exposures/hazards: No Sexual orientation: Straight/Heterosexual Gender identity: Female Cognitive needs: No Hearing needs: No Vision needs: No Physical Exam Vital Signs: Last Vital Signs Temp 97.4 F 09/07/22 08:31 Pulse 61 09/07/22 08:31 BP 171/78 H 09/07/22 08:31 Pulse Ox 61 L 09/07/22 08:31 Oxygen Delivery Method Room Air 09/07/22 08:31 BMI result Body Mass Index 23.5 Const General: cooperative, comfortable and no acute distress Orientation/consciousness: patient oriented x3 GI Other: soft, nontender, nondistended, incisions well healed, no hernia, no masses Neuro General: patient oriented x3 Assessment & Plan Assessment & Plan (1) History of gastric bypass: Code(s): Z98.84 - Bariatric surgery status Plan Congratulated pt on maintaining her excellent weight loss postop. Pt is interested in restarting peer support groups. Plans to do so in 2 weeks. Following up with ENT at end of month to address vertigo issues; once better controlled plans to restart treadmill exercise. Will recheck vitamin levels. Remainder of labs recently done by PCP reviewed. Next visit with RD per pt preference, to review meal plan. Patient is at healthy BMI and is not considered stable at this time. I spent a total of 30 minutes reviewing/updating records, examining the patient and counseling the patient on weight management as detailed above. Orders: Orders Vitamin B12 and Folate Today Z98.84 - Bariatric surgery status PTHI Today Z.84 - Bariatric surgery status Vitamin A Today Z98.84 - Bariatric surgery status Vitamin B1 Today Z98.84 - Bariatric surgery status Vitamin D 25-OH Total Today Z.84 - Bariatric surgery status Zinc Today Z98.84 - Bariatric surgery status Coding Level of Care Code Est Pt Level 4 (34156) Diagnoses History of gastric bypass Z98.84
[2022-09-07 08:31] VITALS: BP 171/78; PULSE 61; TEMP 36.3; O2SAT 61; BMI 23.5
== END 2022-09-07 09:13 | disposition home or self-care (01) ==
PROVIDERS: PCP Family Medicine; Visit Provider Physician Assistant Surgical
DX: Z71.3 Dietary counseling and surveillance (principal); Z98.84 Bariatric surgery status
CPT/HCPCS: 99214

== ENCOUNTER 2022-09-14 13:46 | Outpatient (AMB) | payer OTHER, SELFPAY ==
--- NOTE | 2022-09-14 13:55 | MHC.AMNUTRGE ---
Intake Intake Visit Reasons: (OV) PO LRYGB 09/26/15 Allergies ibuprofen [IBUPROFEN] Allergy (Intermediate, Verified 09/07/22 08:29) LEOBARDO HUANG Nutrition Presentation Details GBP with Dr. Sampson DOS 09/26/2015 Diet Assmnt Details Pt requested todays appt to discuss other food options for more variety . Also wants recipe ideas. She would like to lose another 5# . 1 turkey sausage, 1 egg fish, turkey burgers, tries to eat vegetables - 2oz protein, 1 oz veg dinner: lean protein and veg Vitamins: only taking a standard MVI, nothing else. Diagnosis Nutrition problem #1 overweight/obesity As related to (etiology) #1 excess energy intake and physical inactivity As evidenced by (sign/symptom) #1 high BMI (RESOLVED) Monitoring/Goals Nutrition problem monitoring total energy intake, level of knowledge/skill, total PRO intake, total CHO intake and weight Outcome progress progressing Learning/Education Readiness to learn excellent Stages of change action Educational materials provided Yes Most Recent Diabetes Results: Microalb/Creat Ratio 5.8 ug/mg cr 08/11/22 Cholesterol 217 mg/dL 08/11/22 HDL Cholesterol 83 mg/dL 08/11/22 Triglycerides 65 mg/dL 08/11/22 Creatinine 0.80 mg/dL (0.5-1.4) 08/11/22 Blood Urea Nitrogen 16 mg/dL (9-16) 08/11/22 Sodium 141 mmol/L (135-145) 08/11/22 Potassium 4.5 mmol/L (3.3-5.1) 08/11/22 Chloride 109 mmol/L (96-108) H 08/11/22 Carbon Dioxide 24 mmol/L (22-29) 08/11/22 Calcium 9.6 mg/dL (8.4-10.2) 08/11/22 AST 25 U/L (5-31) 08/11/22 ALT 23 U/L (0-31) 08/11/22 Total Protein 7.3 g/dL (6.5-8.0) 08/11/22 Albumin 3.8 g/dL (3.5-5.0) 08/11/22 [facility] Medical History Coccyxdynia Well woman exam Surgical History History of gastric bypass Family History Mother Colon cancer Father Myocardial infarction Substance use disorder Brother Substance use disorder Social History Housing: Condominium Alcohol intake: current Alcohol intake frequency: holidays/special occasions only Patient Tobacco Use Status: Never used Tobacco e-Cigarette/Vaping Use: Never Used Second Hand Smoke Exposure: No service: No Current occupational status: unemployed Current occupational exposures/hazards: No Sexual orientation: Straight/Heterosexual Gender identity: Female Cognitive needs: No Hearing needs: No Vision needs: No Assessment & Plan Assessment & Plan (1) History of gastric bypass: Code(s): Z98.84 - Bariatric surgery status Patient Instructions: Pt has done great. Today I provided her some low calorie high protein snack options such as Mini chomps meat sticks, babybell cheese, 1/2 protein bar, shake etc. Provided recipe resources. Vitamins: recommend bariatric vitamin - especially with hx of GBP. can just do celebrate ONE 18 and needs a calcium in addition. Pt felt the appt was very productive - encouraged she communicate as needed with office. Coding Level of Care Code Nutr Indiv Subseq (09800) Diagnoses History of gastric bypass Z98.84 Time Spent (min) 30
== END 2022-09-14 14:20 | disposition home or self-care (01) ==
PROVIDERS: PCP Family Medicine; Visit Provider Dietitian, Registered
DX: Z98.84 Bariatric surgery status (principal)

== ENCOUNTER → 2022-09-14 13:46 | Outpatient (BNVA) | payer OTHER, SELFPAY | PROVIDERS: PCP Family Medicine; Visit Provider Dietitian, Registered | DX: E66.9 Obesity, unspecified (principal); Z98.84 Bariatric surgery status; Z71.3 Dietary counseling and surveillance | CPT/HCPCS: 97803 ==

== ENCOUNTER → 2022-10-06 14:00 | Outpatient (BNVA) | payer OTHER, SELFPAY | PROVIDERS: PCP Family Medicine; Visit Provider Nurse Practitioner Family ==

== ENCOUNTER 2022-11-18 10:45 | Outpatient (AMB) | payer OTHER, SELFPAY ==
--- NOTE | 2022-11-18 11:03 | A.OFFVIS_ITS ---
Intake VS Expanded 11/18/22 11:09 Height 5 ft Weight 114 lb BMI 22.3 BP 139/66 Blood Pressure Location Rt brachial Blood Pressure Position Sitting Respiratory Rate 16 Pulse 57 Pulse Source Pulse Oximeter Temp 97 F Temperature Source Temporal Artery Scan Pulse Oximetry 97 Oxygen Delivery Method Room Air Body Fat 39.2 Body Fat Percentage 34.4 Free Fat Mass 74.8 Muscle Mass 71.0 Visceral Mass 7.0 Water Mass 52.6 BMR 1,044 Intake Visit Reasons: (OV) PO LRYGB 09/26/15 Allergies ibuprofen [IBUPROFEN] Allergy (Intermediate, Verified 11/18/22 11:07) HIVES Medication List - Last Reconciled 11/18/22 by RAULITO Cintron amitriptyline 50 mg PO BEDTIME 30 days calcium citrate-vitamin D3 315 mg-5 mcg (200 unit) 2 tabs PO BID cholecalciferol (vitamin D3) 50 mcg PO DAILY ferrous sulfate 325 mg PO DAILY multivitamin 1 tab PO DAILY 1 month sertraline 50 mg PO DAILY vitamin A palmitate 10,000 units PO DAILY HPI HPI Comments History of Present Illness Details This?is a?61?yo female who is s/p RYGB 09/26/2015. She is 7+ years s/p RYGB. Weight today is 114 pounds, with a BMI today of 22.3.? She has lost about 6lbs since last visit 3 months ago. No complaints of nausea, emesis, abdominal pain or reflux, or constipation. Happy with current weight. Present meal plan includes: uses regular food, no supplements breakfast- turkey sausage and 1 egg lunch varies but tries to get protein in dinner- protein and salad enjoys fruits and vegetables taking MVI does a lot of meal prep Exercise routine includes: went back to [facility] after vertigo improved, 3x/week Pt reports issues of excess skin of upper arms. Has difficulty wearing certain clothes particularly jackets which are very tight around the arms and cause a lot of discomfort. Has noticed painful chafing and skin irritation where skin rubs against body, particularly when she tries to exercise as this causes a lot of discomfort and limits her range of motion in not being able to exercise to full capacity. [facility] Medical History Coccyxdynia Well woman exam Surgical History History of gastric bypass Family History Mother Colon cancer Father Myocardial infarction Substance use disorder Brother Substance use disorder Social History Housing: Condominium Alcohol intake: current Alcohol intake frequency: holidays/special occasions only Patient Tobacco Use Status: Never used Tobacco e-Cigarette/Vaping Use: Never Used Second Hand Smoke Exposure: No service: No Current occupational status: unemployed Current occupational exposures/hazards: No Sexual orientation: Straight/Heterosexual Gender identity: Female Cognitive needs: No Hearing needs: No Vision needs: No Physical Exam Vital Signs: Last Vital Signs Temp 97 F 11/18/22 11:09 Pulse 57 11/18/22 11:09 Resp 16 11/18/22 11:09 BP 139/66 11/18/22 11:09 Pulse Ox 97 11/18/22 11:09 Oxygen Delivery Method Room Air 11/18/22 11:09 BMI result Body Mass Index 22.3 Const General: cooperative, comfortable and no acute distress Orientation/consciousness: patient oriented x3 Skin Other: excess skin of upper arms measuring 8cm bilaterally from level of triceps Neuro General: patient oriented x3 Assessment & Plan Assessment & Plan (1) History of gastric bypass: Code(s): Z98.84 - Bariatric surgery status Plan Pt to continue same meal plan and exercise regimen. She is having issues of excess skin of upper arms resulting in painful chafing, and discomfort with range of motion particularly with exercise which is necessary to maintain her excellent weight loss. Recommended compression sleeves of arms to better hold skin in place, and can try body balm to prevent chafing. RTC 6 weeks to monitor ongoing problems of excess skin of arms. Patient is at healthy weight but with problems of excess skin of upper arms, and is not considered stable at this time. I spent a total of 30 minutes reviewing/updating records, examining the patient and counseling the patient on weight management as detailed above. Coding Level of Care Code Est Pt Level 4 (35406) Diagnoses History of gastric bypass Z98.84
[2022-11-18 11:09] VITALS: BP 139/66; PULSE 57; RESP 16; TEMP 36.1; O2SAT 97; BMI 22.3
== END 2022-11-18 11:41 | disposition home or self-care (01) ==
PROVIDERS: PCP Family Medicine; Visit Provider Physician Assistant Surgical
DX: L98.7 Excessive and redundant skin and subcutaneous tissue (principal); Z68.22 Body mass index [BMI] 22.0-22.9, adult; Z90.3 Acquired absence of stomach [part of]; Z98.84 Bariatric surgery status
CPT/HCPCS: 99214

== ENCOUNTER → 2022-11-18 10:45 | Outpatient (BNVA) | payer OTHER, SELFPAY | PROVIDERS: PCP Family Medicine; Visit Provider Physician Assistant Surgical | DX: Z98.84 Bariatric surgery status (principal) | CPT/HCPCS: 99212 ==

== ENCOUNTER 2023-01-06 12:59 | Outpatient (AMB) | payer OTHER, SELFPAY ==
--- NOTE | 2023-01-06 13:20 | A.OFFVIS_ITS ---
Intake VS Expanded 01/06/23 13:25 BP 145/70 H Blood Pressure Location Rt brachial Blood Pressure Position Sitting Pulse 60 Pulse Source Pulse Oximeter Temp 96.7 F L Temperature Source Temporal Artery Scan Pulse Oximetry 96 Oxygen Delivery Method Room Air Height 5 ft 1 in Weight 113 lb 9.6 oz BMI 21.5 Body Fat % 33.8 Body Fat Mass 38.4 Fat Free Mass 75.2 Visceral Fat Rating 7.0 Body Water % 46.6 Body Water Mass 53.0 Muscle Mass/Score 71.2 Basal Metabolic Rate/Score 1,047 Intake Visit Reasons: (OV) PO LRYGB 09/26/15 Allergies ibuprofen [IBUPROFEN] Allergy (Intermediate, Verified 01/06/23 13:23) HIVES Medication List - Last Reconciled 01/06/23 by RAULITO Cintron amitriptyline 50 mg PO BEDTIME 30 days calcium citrate-vitamin D3 315 mg-5 mcg (200 unit) 2 tabs PO BID cholecalciferol (vitamin D3) 50 mcg PO DAILY ferrous sulfate 325 mg PO DAILY multivitamin 1 tab PO DAILY 1 month sertraline 50 mg PO DAILY vitamin A palmitate 10,000 units PO DAILY HPI HPI Comments History of Present Illness Details This?is a?61?yo female who is s/p RYGB 09/26/2015. She is 7+ years s/p RYGB. Weight today is stable since last visit. No complaints of nausea, emesis, abdominal pain or reflux, or constipation. Happy with current weight. Present meal plan includes: uses regular food, no supplements breakfast- turkey sausage and 1 egg lunch varies but tries to get protein in dinner- protein and salad enjoys fruits and vegetables taking MVI does a lot of meal prep Exercise routine includes: went back to after vertigo improved, 3x/week Pt reports issues of excess skin of upper arms. Has difficulty wearing certain clothes particularly jackets which are very tight around the arms and cause a lot of discomfort. Has noticed painful chafing and skin irritation where skin rubs against body, particularly when she tries to exercise as this causes a lot of discomfort and limits her range of motion in not being able to exercise to full capacity. She did try body balm to minimize chafing but reports this did not help. She also has difficulty lifting her arms overhead completely without discomfort, limiting her range of motion in everyday activities. [facility] Medical History Coccyxdynia Well woman exam Surgical History History of gastric bypass Family History Mother Colon cancer Father Myocardial infarction Substance use disorder Brother Substance use disorder Social History Housing: Condominium Alcohol intake: current Alcohol intake frequency: holidays/special occasions only Patient Tobacco Use Status: Never used Tobacco e-Cigarette/Vaping Use: Never Used Second Hand Smoke Exposure: No service: No Current occupational status: unemployed Current occupational exposures/hazards: No Sexual orientation: Straight/Heterosexual Gender identity: Female Cognitive needs: No Hearing needs: No Vision needs: No Physical Exam Vital Signs: Last Vital Signs Temp 96.7 F L 01/06/23 13:25 Pulse 60 01/06/23 13:25 BP 145/70 H 01/06/23 13:25 Pulse Ox 96 01/06/23 13:25 Oxygen Delivery Method Room Air 01/06/23 13:25 BMI result Body Mass Index 21.5 Const General: cooperative, comfortable and no acute distress Orientation/consciousness: patient oriented x3 Skin Other: excess skin of bilateral upper arms measuring 8cm from the level of the triceps Neuro General: patient oriented x3 Assessment & Plan Assessment & Plan (1) History of gastric bypass: Code(s): Z98.84 - Bariatric surgery status (2) Excess skin: Code(s): L98.7 - Excessive and redundant skin and subcutaneous tissue Plan Pt to continue same meal plan and exercise regimen. She is aware that if approved for surgery, it will have to be adjusted. She is having issues of excess skin of upper arms resulting in painful chafing unresolved with topical treatment, and discomfort with range of motion particularly with normal everyday activities like reaching overhead, as well as with exercise which is necessary to maintain her excellent weight loss. Conservative treatment including topical treatments and compression sleeves have not been effective at resolving her issues. She would benefit from definitive treatment of bilateral brachioplasty. Will submit to insurance today. Patient is at healthy weight but with problems of excess skin of upper arms, and is not considered stable at this time. I spent a total of 30 minutes reviewing/updating records, examining the patient and counseling the patient on weight management as detailed above. Coding Level of Care Code Est Pt Level 4 (26131) Diagnoses History of gastric bypass Z98.84 Excess skin L98.7
[2023-01-06 13:25] VITALS: BP 145/70; PULSE 60; TEMP 35.9; O2SAT 96; BMI 21.5
== END 2023-01-06 13:51 | disposition home or self-care (01) ==
PROVIDERS: PCP Family Medicine; Visit Provider Physician Assistant Surgical
DX: L98.7 Excessive and redundant skin and subcutaneous tissue (principal); Z98.84 Bariatric surgery status
CPT/HCPCS: 99214

== ENCOUNTER → 2023-01-06 12:59 | Outpatient (BNVA) | payer OTHER, SELFPAY | PROVIDERS: PCP Family Medicine; Visit Provider Physician Assistant Surgical | DX: L98.7 Excessive and redundant skin and subcutaneous tissue (principal); Z98.84 Bariatric surgery status | CPT/HCPCS: 99212 ==

== ENCOUNTER 2023-02-09 08:10 | Outpatient (AMB) | payer OTHER, SELFPAY ==
--- NOTE | 2023-02-09 13:43 | MHC.OFFVISWM ---
Intake Intake Visit Reasons: TV Pre Op Brachioplasty 02/23/23 Allergies ibuprofen [IBUPROFEN] Allergy (Intermediate, Verified 02/09/23 13:44) HIVES Medication List - Last Reconciled 02/09/23 by Imer Sampson MD amitriptyline 50 mg PO BEDTIME 30 days bupropion HCl 75 mg PO BID 30 days calcium citrate-vitamin D3 315 mg-5 mcg (200 unit) 2 tabs PO BID cephalexin 500 mg PO Q12H cholecalciferol (vitamin D3) 50 mcg PO DAILY ferrous sulfate 325 mg PO DAILY multivitamin 1 tab PO DAILY 1 month sertraline 50 mg PO DAILY vitamin A palmitate 10,000 units PO DAILY HPI TV Pre Op Brachioplasty 02/23/23 HPI Details Start time: 1.34pm, End time: 2.09pm ?I spent 20 minutes speaking with the patient on the phone plus an additional 5 minutes reviewing and updating records for a total of 25 minutes HPI Comments History of Present Illness Details Overall weight loss: 71lbs, or 38.2% TBWL Is doing a turkey sausage with an egg, lunch (protein and fruits) and dinner (protein and fruits) [facility] Medical History (Updated 02/09/23 @ 13:42 by Imer Sampson MD) Intestinal malabsorption Well woman exam Coccyxdynia Surgical History History of gastric bypass Family History Mother Colon cancer Father Myocardial infarction Substance use disorder Brother Substance use disorder Social History Housing: Condominium Alcohol intake: current Alcohol intake frequency: holidays/special occasions only Patient Tobacco Use Status: Never used Tobacco e-Cigarette/Vaping Use: Never Used Second Hand Smoke Exposure: No service: No Current occupational status: unemployed Current occupational exposures/hazards: No Sexual orientation: Straight/Heterosexual Gender identity: Female Cognitive needs: No Hearing needs: No Vision needs: No Assessment & Plan Assessment & Plan (1) Excess skin: Code(s): L98.7 - Excessive and redundant skin and subcutaneous tissue Plan: 1. Plan for bilateral brachioplasty. Risks of infection, bleeding, asymmetry, wound dehiscence and blood clots were discussed with the patient. 2. You will need to be doing sponge baths the first 1-2 weeks. No showers. You need to have help at home to get you up and limit your activities as much as possible for at least the 4-6 weeks after surgery 3. We will arrange for a visiting nurse to come at home to help you with dressing changes and send me pictures of the procedures. We will send at your home supplies for the dressing changes. 4. Change nutritional plan to 3 ONE protein bars and one meal (6 forks of protein and 6 forks of salad or vegetables). If needed, do another HALF bar at 8pm-9pm if you feel hungry. This will improve weight loss and healing after surgery. 5. Let me know if you try the Celebrate Rebuild protein shake (1 scoop in 8oz almond milk) and you like it so I can incorporate it to the plan 6. Continue all vitamins 7. 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 Risks and complications were discussed the possibility of bleeding that may require transfusion, loss of the umbilicus, wound dehiscence or infection, dog ears , flap asymmetry. We also discussed the importance of strict avoidance of weight lifting. 9. Avoid aspirin, motrin, ibuprofen, Aleve, Advil, Naproxyn. Only Tylenol is OK Orders: Orders Type and Screen Today K90.9 - Intestinal malabsorption, unspecified Comprehensive Met. Panel Today K90.9 - Intestinal malabsorption, unspecified Prothrombin Time INR Today K90.9 - Intestinal malabsorption, unspecified Partial Thromboplastin Time Today K90.9 - Intestinal malabsorption, unspecified Complete Blood Count Auto Diff Today K90.9 - Intestinal malabsorption, unspecified Medications: New cephalexin 500 mg PO Q12H 30 caps 1RF L03.90 - Cellulitis, unspecified Telehealth Telehealth Location of provider rendering services: practice address Location of patient: address on file Patient Identification confirmed using: Name, : Yes Telehealth method: voice only Patient verbally consented to treatment: Yes Patient verbally consented to billing insurance company: Yes Patient informed of any privacy concerns related to visit: Yes Minutes spent on Phone/Video with Pt.: 25 Coding Level of Care Code Tele Est Pt Level 3 (10658) Diagnoses Excess skin L98.7 Time Spent (min) 25
== END 2023-02-09 14:10 | disposition home or self-care (01) ==
LOC: HO.HBS 08:10
PROVIDERS: PCP Family Medicine; Visit Provider Surgery
DX: L98.7 Excessive and redundant skin and subcutaneous tissue (principal)
CPT/HCPCS: 99024

== ENCOUNTER → 2023-02-09 08:10 | Outpatient (BNVA) | payer OTHER, SELFPAY | PROVIDERS: PCP Family Medicine; Visit Provider Surgery | DX: L98.7 Excessive and redundant skin and subcutaneous tissue (principal) | CPT/HCPCS: 99212 ==

== ENCOUNTER 2023-02-25 12:12 | Outpatient (REF) | payer OTHER, SELFPAY | END 2023-02-25 12:13 | disposition home or self-care (01) | LOC: HO.US 12:12 | PROVIDERS: PCP Family Medicine; Visit Provider Nurse Practitioner Family | DX: N20.0 Calculus of kidney (principal); N28.1 Cyst of kidney, acquired | CPT/HCPCS: 76775 ==

== ENCOUNTER 2023-03-03 14:09 | Outpatient (AMB) | payer OTHER, SELFPAY ==
--- NOTE | 2023-03-03 14:19 | MHC.OFFVIS ---
Intake Intake Visit Reasons: 6m/US Intake Note: Patient is present for follow up ultrasound/kidney stone (imaging 02/25/23) Urology Medications: none Blood Thinner: none Printing Manager Required: No Accompanied by: Self / Same As Patient Allergies ibuprofen [IBUPROFEN] Allergy (Intermediate, Verified 03/03/23 14:52) HIVES Medication List - Last Reconciled 03/03/23 by SHENA LopezP- amitriptyline 50 mg PO BEDTIME 30 days bupropion HCl 75 mg PO BID 30 days calcium citrate-vitamin D3 315 mg-5 mcg (200 unit) 2 tabs PO BID cholecalciferol (vitamin D3) 50 mcg PO DAILY ferrous sulfate 325 mg PO DAILY multivitamin 1 tab PO DAILY 1 month sertraline 50 mg PO DAILY vitamin A palmitate 10,000 units PO DAILY Is last menstrual period known: No HPI HPI Comments History of Present Illness Details Elana is a pleasant 62 year old female patient of . She has a past medical history of anxiety, depression, vertigo, fatigue, and difficulty sleeping. She presents to the office today for follow-up of her nephrolithiasis and renal cyst. In discussion with the patient today she reports to be doing and feeling well. She reports to be drinking plenty of water daily. She discusses her upcoming surgical procedure for brachioplasty. Recent renal imaging results reviewed with the patient today. Right kidney with a benign 1.2 cm Bosniak class 2 renal cyst which requires no additional imaging or follow-up per radiology report. No nephrolithiasis or hydronephrosis noted bilaterally. When asked she denies urinary urgency, urinary frequency, incontinence, nocturia, hematuria, dysuria, foul smelling urine, changes to urinary stream, flank pain, fever, and or chills. She is happy with her current voiding parameters. In office urinalysis results reviewed with the patient today. She otherwise denies any issues or concerns at this time. [facility] Medical History Intestinal malabsorption Well woman exam Coccyxdynia Surgical History History of gastric bypass Family History Mother Colon cancer Father Myocardial infarction Substance use disorder Brother Substance use disorder Social History Housing: Condominium Alcohol intake: current Alcohol intake frequency: holidays/special occasions only Patient Tobacco Use Status: Never used Tobacco e-Cigarette/Vaping Use: Never Used Second Hand Smoke Exposure: No service: No Current occupational status: unemployed Current occupational exposures/hazards: No Sexual orientation: Straight/Heterosexual Gender identity: Female Cognitive needs: No Hearing needs: No Vision needs: No Review of Systems Const Reports as per HPI Eyes Reports no additional complaints ENT Reports as per HPI Card Reports no additional complaints Resp Reports no additional complaints GI Reports no additional complaints Reports as per HPI Musc Reports no additional complaints Neuro Reports no additional complaints Psych Reports as per HPI Endo Reports no additional complaints Edward/Lymph Reports no additional complaints Aller/Immun Reports no additional complaints Physical Exam Const General: cooperative, healthy appearing, comfortable, no acute distress, well developed, alert and awake Orientation/consciousness: patient oriented x3 Limitations: no limitations HEENT Head: Yes normal to inspection, Yes normocephalic and Yes atraumatic Ears: hearing grossly normal bilaterally Eyes General: appearance normal, both eyes and all related structures Neck Neck: Yes normal visual inspection and Yes trachea midline Chest Chest palpation & inspection: normal inspection of the chest Resp Effort & Inspection: normal respiratory effort and able to speak in complete sentences Cardio Rate: regular rate GI Inspection: Yes normal to inspection General: Yes no CVA tenderness Back/Spine/Pelvis Back: no CVA tenderness Skin General skin exam: no rashes or lesions noted Neuro General: patient oriented x3 Extrem General: Yes normal to inspection Psych Appearance: grossly normal and well kempt Mental Status: mental status grossly normal Speech and movement: Normal speech and movement present and Clear speech present Affect: normal affect Attitude: cooperative Thought process: Normal thought process present Thought content: Normal thought content present Insight: Good insight present (Psych) Judgement: Good judgement present (Psych) Results AMB Urinalysis, Automated UA Leukoctes 15 Leobardo/uL Last Edit by Mulugeta Peres on 03/03/23 14:34 UA Nitrite Negative Last Edit by Mulugeta Peres on 03/03/23 14:34 UA Urobilinogen 0.2 mg/dL Last Edit by Mulugeta Peres on 03/03/23 14:34 UA Protein 0 mg/dL Last Edit by Mulugeta Peres on 03/03/23 14:34 UA pH 6.0 Last Edit by Mulugeta Peres on 03/03/23 14:34 UA Blood 0 Gurmeet/uL Last Edit by Mulugeta Peres on 03/03/23 14:34 UA Specific Shirland 1.015 Last Edit by Mulugeta Peres on 03/03/23 14:34 UA Ketone Negative Last Edit by Mulugeta Peres on 03/03/23 14:34 UA Bilirubin 0 mg/dL Last Edit by Mulugeta Peres on 03/03/23 14:34 UA Glucose 0 mg/dL Last Edit by Mulugeta Peres on 03/03/23 14:34 Results Reviewed Results Reviewed: Laboratory Last Values Urine pH (Auto) 6.0 03/03/23 14:22 Specific Shirland (Auto) 1.015 03/03/23 14:22 Urine Protein (Auto) 0 mg/dL 03/03/23 14:22 Glucose (UA)(Auto) 0 mg/dL 03/03/23 14:22 Urine Ketones (Auto) Negative 03/03/23 14:22 Urine Blood (Auto) 0 Gurmeet/uL 03/03/23 14:22 Urine Nitrite (Auto) Negative 03/03/23 14:22 Urine Bilirubin (Auto) 0 mg/dL 03/03/23 14:22 Urine Urobilinogen (Auto) 0.2 mg/dL 03/03/23 14:22 Leukocyte Esterase (Auto) 15 Leobardo/uL 03/03/23 14:22 Date of Service: 02/25/23 EXAMINATION: US RETROPERITONEAL LIMITED (RENAL ONLY) FINDINGS: RIGHT KIDNEY: 8.8 x 5.7 x 4.6 cm (SAG x AP x TRV). The kidney is small in size with a smooth contour and normal echogenicity. Renal cortical thickness is normal. No renal calculi or hydronephrosis. A benign 1.2 cm Bosniak class II renal cyst with a few septations, is noted which requires no additional imaging or follow up. This was seen previously and measured 1.5 cm. No solid renal masses are seen. LEFT KIDNEY: 8.1 x 4.8 x 4.9 cm (SAG x AP x TRV). The kidney is small in size with a smooth contour and normal echogenicity. Renal cortical thickness is normal. No calculi or focal parenchymal lesions. No hydronephrosis. IMPRESSION: No renal calculi are seen. Assessment & Plan Assessment & Plan (1) Renal cyst: Code(s): N28.1 - Cyst of kidney, acquired (2) Kidney stones: Code(s): N20.0 - Calculus of kidney Plan In office urinalysis results reviewed with the patient today; as noted above. Recent renal ultrasound results reviewed with the patient today; as noted above. Discussed at length importance of drinking plenty of water daily. Discussed adding 1 oz of lemon juice to water daily. Patient denies any urological issues or concerns at this time. Patient reports be happy with current voiding parameters. Renal ultrasound in one year Follow-up in one year with imaging to be completed prior; or sooner with any issues, concerns, and or questions. Orders: Orders AMB Urinalysis Automated Today Z13.9 - Encounter for screening, unspecified US renal BI 364 Days N20.0 - Calculus of kidney Patient Instructions: The patient had an opportunity to ask questions regarding the treatment plan. All questions were answered. Physical exam, labs, and imaging were discussed and reviewed in detail. As well as risks, benefits, and discussion of treatment choices. No major barriers to understanding were identified. The patient expressed understanding and agreement with the above treatment plan. The patient was made aware they should contact our office by phone for worsening of their current condition, the appearance of new symptoms, or with any questions or concerns. Compliance is encouraged with any medications and follow up testing that is ordered. It is a privilege to be allowed the opportunity to participate in? your urological care.? Again, if you have any questions or concerns If you have any questions or concerns please do not hesitate to contact me. The office is [phone]. This note is constructed using voice recognition software. While every effort has been made to ensure accuracy veterans service officer errors may have been included. Yours sincerely, SHAR Lopez Coding Level of Care Code Est Pt Level 3 (89533) Diagnoses Renal cyst N28.1 Kidney stones N20.0
== END 2023-03-03 15:04 | disposition home or self-care (01) ==
PROVIDERS: PCP Family Medicine; Visit Provider Nurse Practitioner Family
DX: N28.1 Cyst of kidney, acquired (principal); N20.0 Calculus of kidney; Z13.9 Encounter for screening, unspecified
CPT/HCPCS: 99213

== ENCOUNTER → 2023-03-03 14:09 | Outpatient (BNVA) | payer OTHER, SELFPAY | PROVIDERS: PCP Family Medicine; Visit Provider Nurse Practitioner Family | DX: N28.1 Cyst of kidney, acquired (principal); N20.0 Calculus of kidney | CPT/HCPCS: 81003; 99212 ==

== ENCOUNTER → 2023-04-01 07:52 | Outpatient (BNVA) | payer OTHER, SELFPAY | PROVIDERS: PCP Family Medicine; Visit Provider Surgery ==

== ENCOUNTER 2023-10-05 14:40 | Outpatient (AMB) | payer OTHER, SELFPAY ==
--- NOTE | 2023-10-05 14:38 | MHC.OFFVISWM ---
VS Expanded 10/05/23 14:41 Height 5 ft Weight 120 lb BMI 23.4 Intake Visit Reasons: (TV) PO LRYGB 09/26/15 Allergies ibuprofen [IBUPROFEN] Allergy (Intermediate, Verified 04/01/23 09:15) HIVES Medication List - Last Reconciled 10/05/23 by RAULITO Cintron amitriptyline 50 mg PO BEDTIME 30 days bupropion HCl 75 mg PO BID 90 days calcium citrate-vitamin D3 315 mg-5 mcg (200 unit) 2 tabs PO BID cephalexin 500 mg PO Q12H cholecalciferol (vitamin D3) 50 mcg PO DAILY docusate sodium (Colace) 100 mg PO DAILY ferrous sulfate 325 mg PO DAILY multivitamin 1 tab PO DAILY 1 month sertraline 50 mg PO DAILY vitamin A palmitate 10,000 units PO DAILY HPI Comments Details: This?is a?62?yo female who is s/p RYGB 09/26/2015. She is 8 years s/p RYGB. Weight today is stable since last visit. No complaints of nausea, emesis, abdominal pain or reflux, or constipation. Happy with current weight. Pt did not feel comfortable being alone after planned brachioplasty, so was cancelled earlier this year. Present meal plan includes: uses regular food, no supplements breakfast- turkey sausage and 1 egg lunch varies but tries to get protein in dinner- protein and salad enjoys fruits and vegetables taking MVI does a lot of meal prep Pt reports a change in her eating, I have to take control of it. In her new relationship she is eating different foods, still portion controlled. Tried bars again but had difficulty finding one she liked. [facility] Medical History (Updated 03/22/23 @ 14:44 by Taniya Silva RN) Benign cardiac murmur Renal calculi Renal cyst Intestinal malabsorption Coccyxdynia Surgical History (Updated 03/22/23 @ 14:46 by Taniya Silva RN) H/O colonoscopy History of gastric bypass Family History Mother Colon cancer Father Myocardial infarction Substance use disorder Brother Substance use disorder Social [facility] Alcohol intake: current Alcohol intake frequency: holidays/special occasions only Patient Tobacco Use Status: Never used Tobacco e-Cigarette/Vaping Use: Never Used Second Hand Smoke Exposure: No service: No Current occupational status: unemployed Current occupational exposures/hazards: No Sexual orientation: Straight/Heterosexual Gender identity: Female Cognitive needs: No Hearing needs: No Vision needs: No Telehealth Telehealth Telehealth Platform: Telephone Location of provider rendering services: practice address Location of patient: address on file Patient Identification confirmed using: Name, : Yes Telehealth method: voice only Patient verbally consented to treatment: Yes Patient verbally consented to billing insurance company: Yes Patient informed of any privacy concerns related to visit: Yes Minutes spent on Phone/Video with Pt.: 15 Assessment & Plan Assessment & Plan (1) History of gastric bypass: Comment: 2016 Code(s): Z98.84 - Bariatric surgery status Category: Surgical Plan Suggested incorporating Fairlife shakes 1 or 2 per day for breakfast or lunch and keeping dinner meal as protein/veg. Pt willing to try these shakes. Has labs pending, reminded to have drawn- she is interested in her vitamin levels. RTC 3 months. I spent a total of 30 minutes reviewing/updating records, examining the patient and counseling the patient on weight management as detailed above.
[2023-10-05 14:41] VITALS: BMI 23.4
== END 2023-10-05 14:54 | disposition home or self-care (01) ==
LOC: HO.HBS 14:40
PROVIDERS: PCP Family Medicine; Visit Provider Physician Assistant Surgical
DX: Z71.3 Dietary counseling and surveillance (principal); Z98.84 Bariatric surgery status
CPT/HCPCS: 99442

== ENCOUNTER → 2023-10-05 14:40 | Outpatient (BNVA) | payer OTHER, SELFPAY | PROVIDERS: PCP Family Medicine; Visit Provider Physician Assistant Surgical ==

== ENCOUNTER 2023-10-12 06:39 | Outpatient (REF) | payer OTHER, SELFPAY ==
[2023-10-12 07:18] LABS: MANUAL DIFF FLAG NO
[2023-10-12 07:45] LABS: Basophils Percent Auto 0.5 % (0-2); Eosinophils Absolute Auto 0.1 X10*3/uL (0.0-0.4); Eosinophils Percent Auto 1.3 % (0-4); Hematocrit 36.5 % (37.0-47.0); Hemoglobin 11.9 g/dl (12.0-16.0); Imm Gran Abs Auto 0.01 X10*3/uL (0.00-0.03); Imm Gran Pct Auto 0.2 % (0.0-0.4); Lymphocytes Absolute Auto 2.1 X10*3/uL (1.2-4.9); Lymphocytes Percent Auto 38.1 % (20-40); Mean Corpuscular HGB Conc 32.6 g/dl (31.0-35.0); Mean Corpuscular Hemoglobin 26.6 pg (27.0-33.0); Mean Corpuscular Volume 81.7 fL (80.0-98.0); Mean Platelet Volume 11.5 fL (9.4-12.3); Monocytes Absolute Auto 0.6 X10*3/uL (0.1-1.2); Monocytes Percent Auto 10.4 % (2-11); Neutrophils Absolute Auto 2.7 x10*3/uL (2.0-8.3); Neutrophils Percent Auto 49.5 % (45-73); Platelet Count 261 X10*3/uL (160-400); Red Blood Count 4.47 X10*6/uL (4.20-5.50); Red Cell Distribution Width 14.1 % (11.0-16.0); White Blood Count 5.5 X10*3/uL (4.8-10.8)
[2023-10-12 07:47] LABS: Prothrombin Time 11.9 SEC (11.1-13.3)
[2023-10-12 07:50] LABS: Partial Thromboplastin Time 33.8 SEC (26.0-36.8)
[2023-10-12 07:51] LABS: Estimated Average Glucose 111 mg/dL; Hemoglobin A1c % 5.5 % (<6.0)
[2023-10-12 08:26] LABS: Alanine Aminotransferase 24 U/L (0-31); Albumin Level 3.9 g/dL (3.5-5.0); Alkaline Phosphatase 70 U/L (39-117); Anion Gap 12 (12-20); Aspartate Amino Transferase 27 U/L (5-31); Bilirubin Total 0.8 mg/dL (0.0-1.0); Blood Urea Nitrogen 18 mg/dL (9-16); C Reactive Protein < 0.10 mg/dL (< or = 0.50); Calcium 9.7 mg/dL (8.4-10.2); Carbon Dioxide 31 mmol/L (22-29); Chloride 104 mmol/L (96-108); Cholesterol 213 mg/dL (<200); Estimated Glomerular Filt Rate > 60; Glucose Random 98 mg/dL (60-115); HDL Cholesterol 89 mg/dL (>40); Iron 88 mcg/dL (30-160); LDL Cholesterol Calculated 109 mg/dL (<100); Percent Iron Saturation 33 % (15-50); Potassium 3.5 mmol/L (3.3-5.1); Sodium 143 mmol/L (135-145); Total Iron Binding Capacity 268 mcg/dL (228-428); Total Protein 7.5 g/dL (6.5-8.0); Triglycerides 75 mg/dL (<150); Unsaturated Iron Binding 180 ug/dL
[2023-10-12 08:38] LABS: Vitamin B12 325 pg/mL (200-900)
[2023-10-12 08:43] LABS: Ferritin 99 ng/mL (10-250); TSH reflex Free T4 1.29 uIU/mL (0.32-4.0); Vitamin D 25-OH Total 54.3 ng/mL (>30)
[2023-10-15 14:34] LABS: Zinc 71 mcg/dL (60-130)
[2023-10-18 05:59] LABS: Vitamin A 46 mcg/dL (38-98)
[2023-10-19 06:29] LABS: Vitamin B1 10 nmol/L (8-30)
== END 2023-10-12 06:40 | disposition home or self-care (01) ==
LOC: HO.LAB 06:39
PROVIDERS: PCP Family Medicine; Visit Provider Surgery
DX: Z13.6 Encounter for screening for cardiovascular disorders (principal); Z13.1 Encounter for screening for diabetes mellitus; K90.9 Intestinal malabsorption, unspecified
CPT/HCPCS: 36415; 80053; 80061; 82306; 82607; 82728; 83036; 83540; 84425; 84443; 84590; 84630; 85025; 85610; 85730; 86140; 86850; 86900; 86901

== ENCOUNTER 2023-11-16 12:23 | Outpatient (AMB) | payer OTHER, SELFPAY ==
--- NOTE | 2023-11-16 12:26 | MHC.OFFVIS ---
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 She is doing well with concerns: Admits to eating later than usual, and not exercising as often as she would like. Currently sexually active. Denies any vaginal dryness or irritation. STI testing offered; she accepts. Last pap smear; 2022, negative, prior Pap HPV positive. Last mammogram; 2022, is scheduled 12/02/2023. Colonoscopy is UTD. Denies any family history of ovarian cancer, FH breast and colon cancer. [facility] Medical History (Updated 11/16/23 @ 12:27 by Palma Villanueva CNM) Benign cardiac murmur Renal calculi Renal cyst Intestinal malabsorption Coccyxdynia Surgical History (Updated 03/22/23 @ 14:46 by Taniya Silva RN) H/O colonoscopy History of gastric bypass Family History (Updated 11/16/23 @ 13:06 by NAT Conde) Mother Colon cancer Father Myocardial infarction Substance use disorder Brother Substance use disorder Maternal Aunt History of breast cancer Social History Housing: Condominium Alcohol intake: current Alcohol intake frequency: holidays/special occasions only Patient Tobacco Use Status: Never used Tobacco e-Cigarette/Vaping Use: Never Used Second Hand Smoke Exposure: No service: No Current occupational status: unemployed Current occupational exposures/hazards: No Sexual orientation: Straight/Heterosexual Gender identity: Female Cognitive needs: No Hearing needs: No Vision needs: No Female Reproductive History Menstrual Total pregnancies: 4 Full term: 1 Number of Living Children: 1 Ab spontaneous: 3 Date of last pap smear: 08/11/22 (neg pap and hpv) History of abnormal pap smear: Yes (see intake note) Date of Mammogram: 05/15/22 (Birad 2, appt 12/02/23) Review of Systems Const All systems reviewed & are unremarkable except as noted in HPI and below Reports as per HPI Eyes Reports no additional complaints ENT Reports no additional complaints Card Reports no additional complaints Resp Reports no additional complaints GI Reports as per [facility] and Reports no additional complaints Reports as per HPI Musc Reports no additional complaints Skin/Breast Reports as per HPI Neuro Reports no additional complaints Psych Reports no additional complaints Endo Reports no additional complaints Edward/Lymph Reports no additional complaints Aller/Immun Reports no additional complaints Physical Exam Const General: cooperative, healthy appearing, no acute distress, well developed and alert Orientation/consciousness: patient oriented x3 HEENT Head: Yes normal to inspection Eyes General: appearance normal, both eyes and all related structures Neck Neck: Yes normal visual inspection Thyroid: Thyroid normal Chest Chest palpation & inspection: normal inspection of the chest and other (no puckering, dimpling, peau de orange, retraction, discharge, masses) Breast/axilla inspection: normal inspection of the breasts Breast/axilla palpation: normal palpation of the breasts Resp Effort & Inspection: normal respiratory effort GI Inspection: Yes normal to inspection Palpation (GI): Soft to palpation Rectal Exam - Female: deferred General: Yes bladder normal to palpation External Female Exam: normal external appearance and normal appearance of the urethra Speculum Exam - Vagina: normal appearance of the vagina, normal palpation, normal vaginal discharge and vagina atrophic Speculum Exam - Cervix: normal appearance of the cervix and normal palpation Bimanual exam- vagina & uterus: normal bimanual exam, normal palpation, uterine size normal, bladder normal to palpation, normal palpation and non-tender Bimanual Exam- Adnexa, other: no masses Skin General skin exam: no rashes or lesions noted Rashes: no rashes Neuro General: patient oriented x3 Cognition (Neuro): normal cognition Extrem General: Yes normal to inspection Psych Attitude: cooperative Thought process: Normal thought process present Assessment & Plan Assessment & Plan (1) Encounter for well woman exam with routine gynecological exam: Code(s): Z01.419 - Encounter for gynecological examination (general) (routine) without abnormal findings Category: Medical Plan Discussed: Current recommendations for pap smears per ASCCP guidelines. Personal history of abnormal Pap, Pap obtained today await results for plan of care. Breast awareness, periodic self breast exams and yearly mammogram. Maintain a healthy lifestyle, well balanced diet including Calcium 1,200 mg and Vitamin D 600 IU daily, and routine exercise. Contact the office with any postmenopausal bleeding. Patient verbalizes understanding and agrees to the plan of care. She was given opportunity to ask questions and all questions were answered to the best of my ability. 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 This note is constructed using voice recognition software. While every effort has been made to ensure accuracy, staff electronic warfare officer errors may have been included. Coding Level of Care Code Est Pt Prev Care 40-64y(96624) Diagnoses Encounter for well woman exam with routine gynecological exam Z01.419
[2023-11-16 13:01] VITALS: BP 100/62; BMI 24.6
== END 2023-11-16 13:47 | disposition home or self-care (01) ==
LOC: HO.HWS 12:23
PROVIDERS: PCP Family Medicine; Visit Provider Advanced Practice Midwife
DX: Z01.419 Encounter for gynecological examination (general) (routine) without abnormal findings (principal)
CPT/HCPCS: 99396

== ENCOUNTER → 2023-11-16 12:23 | Outpatient (BNVA) | payer OTHER, SELFPAY | PROVIDERS: PCP Family Medicine; Visit Provider Advanced Practice Midwife ==

== ENCOUNTER 2023-11-26 09:29 | Outpatient (REF) | payer OTHER, SELFPAY ==
--- NOTE | ~2023-11-26 | MM_ITS ---
EXAMINATION: MM SCREENING DIGITAL BREAST TOMOSYNTHESIS, BILATERAL CLINICAL INFORMATION: Screening. Asymptomatic. COMPARISON: Mammography: Comparison is made with available priors TECHNIQUE: Digital breast mammography with tomosynthesis is performed in both the craniocaudal and mediolateral oblique views along with computer-aided detection (CAD). FINDINGS: There are scattered areas of fibroglandular density (ACR BI-RADS breast composition Category b). There are no significant masses, abnormal calcifications, or other abnormalities. MM/MM tomosynthesis screening BI IMPRESSION: No mammographic evidence of malignancy. ASSESSMENT: BI-RADS BI-RADS 1 - Negative RECOMMENDATION: Routine annual mammography screening. 1 year F/U This examination should not preclude the clinical evaluation of a suspicious palpable abnormality. This patient's information was entered into a reminder system with a target due date for their next mammogram. Electronically signed by: Allie Stewart DO 12/09/2023 09:31 AM EDT
== END 2023-11-26 09:30 | disposition home or self-care (01) ==
LOC: HO.MAMMO 09:29
PROVIDERS: PCP Family Medicine; Visit Provider Family Medicine
DX: Z12.31 Encounter for screening mammogram for malignant neoplasm of breast (principal)
CPT/HCPCS: 77063; 77067

== ENCOUNTER → 2023-11-26 10:00 | Outpatient (BNV) | payer OTHER, SELFPAY | PROVIDERS: PCP Family Medicine; Visit Provider Internal Medicine | DX: Z12.31 Encounter for screening mammogram for malignant neoplasm of breast (principal) | CPT/HCPCS: 77063; 77067 ==

== ENCOUNTER 2024-02-24 09:43 | Outpatient (REF) | payer OTHER, SELFPAY ==
--- NOTE | ~2024-02-24 | US_ITS ---
CLINICAL HISTORY: N20.0 - Calculus of kidney Renal ultrasound Comparison: None Findings: The kidneys are normal in echotexture bilaterally. No hydronephrosis. No identified nephrolithiasis. The right kidney is normal in size, measuring 8.4cm in length. There is a cyst with a seen internal septation measuring 1.6 x 1.3 x 1.1 cm The left kidney is normal in size, measuring 7.8cm in length. Impression: No identified nephrolithiasis. This document has been electronically signed by: Anu Grace MD on 02/27/2024 16:29:38
== END 2024-02-24 09:44 | disposition home or self-care (01) ==
LOC: HO.US 09:43
PROVIDERS: PCP Family Medicine; Visit Provider Nurse Practitioner Family
DX: N20.0 Calculus of kidney (principal)
CPT/HCPCS: 76775

== ENCOUNTER → 2024-02-24 09:45 | Outpatient (BNV) | payer OTHER, SELFPAY | PROVIDERS: PCP Family Medicine; Visit Provider Radiology Diagnostic Radiology | DX: N20.0 Calculus of kidney (principal) | CPT/HCPCS: 76775 ==

== ENCOUNTER 2024-02-28 08:56 | Outpatient (AMB) | payer OTHER, SELFPAY ==
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
[2024-02-28 09:19] VITALS: BP 130/60; PULSE 58; RESP 12; O2SAT 100; BMI 25.1
== END 2024-02-28 10:12 | disposition home or self-care (01) ==
PROVIDERS: PCP Family Medicine; Visit Provider Family Medicine
DX: Z00.00 Encounter for general adult medical examination without abnormal findings (principal); D64.9 Anemia, unspecified; E78.00 Pure hypercholesterolemia, unspecified; Z12.11 Encounter for screening for malignant neoplasm of colon; Z12.31 Encounter for screening mammogram for malignant neoplasm of breast

== ENCOUNTER → 2024-02-28 08:56 | Outpatient (BNVA) | payer OTHER, SELFPAY | PROVIDERS: PCP Family Medicine; Visit Provider Family Medicine | DX: Z00.00 Encounter for general adult medical examination without abnormal findings (principal); D64.9 Anemia, unspecified; E78.00 Pure hypercholesterolemia, unspecified; I10 Essential (primary) hypertension | CPT/HCPCS: 96127; 99212; 99396 ==

== ENCOUNTER 2024-03-01 06:23 | Outpatient (REF) | payer OTHER, SELFPAY ==
[2024-03-01 06:34] LABS: MANUAL DIFF FLAG NO
[2024-03-01 06:52] LABS: Basophils Absolute Auto 0.1 X10*3/uL (0.0-0.2); Basophils Percent Auto 0.9 % (0-2); Eosinophils Absolute Auto 0.1 X10*3/uL (0.0-0.4); Eosinophils Percent Auto 1.6 % (0-4); Hematocrit 36.6 % (37.0-47.0); Hemoglobin 11.8 g/dl (12.0-16.0); Imm Gran Abs Auto 0.01 X10*3/uL (0.00-0.03); Imm Gran Pct Auto 0.2 % (0.0-0.4); Lymphocytes Absolute Auto 2.4 X10*3/uL (1.2-4.9); Lymphocytes Percent Auto 42.3 % (20-40); Mean Corpuscular HGB Conc 32.2 g/dl (31.0-35.0); Mean Corpuscular Hemoglobin 26.5 pg (27.0-33.0); Mean Corpuscular Volume 82.1 fL (80.0-98.0); Mean Platelet Volume 11.2 fL (9.4-12.3); Monocytes Absolute Auto 0.6 X10*3/uL (0.1-1.2); Monocytes Percent Auto 10.9 % (2-11); Neutrophils Absolute Auto 2.6 x10*3/uL (2.0-8.3); Neutrophils Percent Auto 44.1 % (45-73); Platelet Count 201 X10*3/uL (160-400); Red Blood Count 4.46 X10*6/uL (4.20-5.50); Red Cell Distribution Width 15.1 % (11.0-16.0); White Blood Count 5.8 X10*3/uL (4.8-10.8)
[2024-03-01 07:14] LABS: Alanine Aminotransferase 20 U/L (0-31); Albumin Level 3.8 g/dL (3.5-5.0); Alkaline Phosphatase 68 U/L (39-117); Anion Gap 12 (12-20); Aspartate Amino Transferase 27 U/L (5-31); Bilirubin Total 1.1 mg/dL (0.0-1.0); Blood Urea Nitrogen 14 mg/dL (9-16); Carbon Dioxide 26 mmol/L (22-29); Chloride 107 mmol/L (96-108); Cholesterol 212 mg/dL (<200); Estimated Glomerular Filt Rate > 60; Glucose Fasting 93 mg/dL (60-99); HDL Cholesterol 83 mg/dL (>40); LDL Cholesterol Calculated 116 mg/dL (<100); Potassium 3.8 mmol/L (3.3-5.1); Sodium 141 mmol/L (135-145); Total Protein 7.2 g/dL (6.5-8.0); Triglycerides 66 mg/dL (<150)
[2024-03-01 07:30] LABS: TSH reflex Free T4 1.27 uIU/mL (0.32-4.0)
[2024-03-01 07:47] LABS: Appearance Urine Clear; Color Urine Yellow; Glucose Urine UA Negative (Negative); Leukocyte Esterase Urine Small (1+) (Negative); Nitrite Urine Negative (Negative); Specific Gravity - Urine >= 1.030 (1.005-1.025); UMIC TRIGGER UA YES; Urine Blood Negative (Negative); Urine Ketones Negative (Negative); Urine Protein Negative (Neg-Trace)
[2024-03-01 08:00] LABS: Bacteria Urine None Seen (None Seen); Hyaline Casts Urine 0-2 /LPF (0-2); RBC Urine 0-2 /HPF (0-2); Squamous Epithelial Cell Urine 0-2 /HPF (0-2); WBC Urine 0-5 /HPF (0-5)
[2024-03-01 08:10] LABS: Creatinine Urine 171.76 mg/dL
== END 2024-03-01 06:24 | disposition home or self-care (01) ==
LOC: HO.LAB 06:23
PROVIDERS: PCP Family Medicine; Visit Provider Family Medicine
DX: Z00.00 Encounter for general adult medical examination without abnormal findings (principal); I10 Essential (primary) hypertension
CPT/HCPCS: 36415; 80053; 80061; 81001; 82043; 82570; 84443; 85025

== ENCOUNTER 2024-03-05 14:27 | Outpatient (AMB) | payer OTHER, SELFPAY ==
--- NOTE | 2024-03-05 14:29 | A.OFFVIS_ITS ---
Intake Visit Reasons: 1y/US(set) Intake Note: Patient is present for 1Y follow up ultrasound Urology Medications: none ALLERGIES:NONE Blood Thinner: none Reports Analysis Manager Required: No Accompanied by: Self / Same As Patient Allergies ibuprofen [IBUPROFEN] Allergy (Intermediate, Verified 03/05/24 15:02) HIVES Medication List - Last Reconciled 03/05/24 by SHAR Lopez amitriptyline 50 mg PO BEDTIME 30 days bupropion HCl 75 mg PO BID 90 days calcium citrate-vitamin D3 315 mg-5 mcg (200 unit) 2 tabs PO BID sertraline 50 mg PO DAILY Is last menstrual period known: No HPI Comments Details: Elana is a pleasant 63 year old female patient of . She has a past medical history of anxiety, depression, vertigo, fatigue, and difficulty sleeping. She presents to the office today for follow-up of her nephrolithiasis and renal cyst. In discussion with the patient today she reports to be doing and feeling well. She denies having had any bothersome urinary issues or concerns since her last office visit here approximately a year ago. Recent renal imaging results reviewed with the patient today 03/17 bilateral kidneys with no hydronephrosis or nephrolithiasis. Right kidney with 1.6 cm cyst with internal septations. When asked she denies urinary urgency, urinary frequency, incontinence, nocturia, hematuria, dysuria, foul smelling urine, changes to urinary stream, flank pain, fever, and or chills. She is happy with her current voiding parameters. In office urinalysis results reviewed with the patient today. 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 She otherwise denies any issues or concerns at this time. [facility] Medical History Benign cardiac murmur Renal calculi Renal cyst Intestinal malabsorption Coccyxdynia Surgical History H/O colonoscopy History of gastric bypass Family History Mother Colon cancer Father Myocardial infarction Substance use disorder Brother Substance use disorder Maternal Aunt History of breast cancer Social History (Reviewed 02/28/24 @ 09:17 by TRINI Angela Housing: Condominium Alcohol intake: current Alcohol intake frequency: holidays/special occasions only Patient Tobacco Use Status: Never used Tobacco e-Cigarette/Vaping Use: Never Used Second Hand Smoke Exposure: No service: No Current occupational status: unemployed Current occupational exposures/hazards: No Sexual orientation: Straight/Heterosexual Gender identity: Female Cognitive needs: No Hearing needs: No Vision needs: No Review of Systems Const Reports as per HPI Eyes Reports no additional complaints ENT Reports as per HPI Card Reports no additional complaints Resp Reports no additional complaints GI Reports no additional complaints Reports as per HPI Musc Reports no additional complaints Neuro Reports no additional complaints Psych Reports as per HPI Endo Reports no additional complaints Edward/Lymph Reports no additional complaints Aller/Immun Reports no additional complaints Physical Exam Const General: cooperative, healthy appearing, comfortable, no acute distress, well developed, alert and awake Orientation/consciousness: patient oriented x3 Limitations: no limitations HEENT Head: Yes normal to inspection, Yes normocephalic and Yes atraumatic Ears: hearing grossly normal bilaterally Eyes General: appearance normal, both eyes and all related structures Neck Neck: Yes normal visual inspection and Yes trachea midline Chest Chest palpation & inspection: normal inspection of the chest Resp Effort & Inspection: normal respiratory effort and able to speak in complete sentences Cardio Rate: regular rate GI Inspection: Yes normal to inspection General: Yes no CVA tenderness Back/Spine/Pelvis Back: no CVA tenderness Skin General skin exam: no rashes or lesions noted Neuro General: patient oriented x3 Extrem General: Yes normal to inspection Psych Appearance: grossly normal and well kempt Mental Status: mental status grossly normal Speech and movement: Normal speech and movement present and Clear speech present Affect: normal affect Attitude: cooperative Thought process: Normal thought process present Thought content: Normal thought content present Insight: Good insight present (Psych) Judgement: Good judgement present (Psych) Results AMB Urinalysis, Automated UA Leukoctes 0 Leobardo/uL Last Edit by TEETEE Ness on 03/05/24 14:41 UA Nitrite Negative Last Edit by TEETEE Ness on 03/05/24 14:41 UA Urobilinogen 0.2 mg/dL Last Edit by TEETEE Ness on 03/05/24 14:4 1 UA Protein 0 mg/dL Last Edit by TEETEE Ness on 03/05/24 14:41 UA pH 5.5 Last Edit by TEETEE Ness on 03/05/24 14:41 UA Blood 0 Gurmeet/uL Last Edit by TEETEE Ness on 03/05/24 14:41 UA Specific [place] 1.025 Last Edit by TEETEE Ness on 03/05/24 14: 41 UA Ketone Negative Last Edit by TEETEE Ness on 03/05/24 14:41 UA Bilirubin 0 mg/dL Last Edit by TEETEE Ness on 03/05/24 14:41 UA Glucose 0 mg/dL Last Edit by TEETEE Ness on 03/05/24 14:41 Results Reviewed Results Reviewed: Laboratory Last Values Urine pH (Auto) 5.5 03/05/24 14:40 Specific [place] (Auto) 1.025 03/05/24 14:40 Urine Protein (Auto) 0 mg/dL 03/05/24 14:40 Glucose (UA)(Auto) 0 mg/dL 03/05/24 14:40 Urine Ketones (Auto) Negative 03/05/24 14:40 Urine Blood (Auto) 0 Gurmeet/uL 03/05/24 14:40 Urine Nitrite (Auto) Negative 03/05/24 14:40 Urine Bilirubin (Auto) 0 mg/dL 03/05/24 14:40 Urine Urobilinogen (Auto) 0.2 mg/dL 03/05/24 14:40 Leukocyte Esterase (Auto) 0 Leobardo/uL 03/05/24 14:40 Date of Service: 02/24/24 Procedure(s): US renal BI Findings: The kidneys are normal in echotexture bilaterally. No hydronephrosis. No identified nephrolithiasis. The right kidney is normal in size, measuring 8.4cm in length. There is a cyst with a seen internal septation measuring 1.6 x 1.3 x 1.1 cm The left kidney is normal in size, measuring 7.8cm in length. Impression: No identified nephrolithiasis. Assessment & Plan Assessment & Plan (1) Kidney stones: Code(s): N20.0 - Calculus of kidney Category: Medical (2) Renal cyst: Code(s): N28.1 - Cyst of kidney, acquired Category: Medical Plan In office urinalysis results reviewed with the patient today; as noted above. Recent renal ultrasound results reviewed with the patient today; as noted above. Discussed at length importance of drinking plenty of water daily. Patient denies any urological issues or concerns at this time. Patient reports be happy with current voiding parameters. Renal ultrasound in one year Follow-up in one year with imaging to be completed prior; or sooner with any issues, concerns, and or questions. Orders: Orders AMB Urinalysis Automated Today Z13.9 - Encounter for screening, unspecified US retroperitoneal comp 1 Year N20.0 - Calculus of kidney, N28.1 - Cyst of kidney, acquired Patient Instructions: The patient had an opportunity to ask questions regarding the treatment plan. All questions were answered. Physical exam, labs, and imaging were discussed and reviewed in detail. As well as risks, benefits, and discussion of treatment choices. No major barriers to understanding were identified. The patient expressed understanding and agreement with the above treatment plan. The patient was made aware they should contact our office by phone for worsening of their current condition, the appearance of new symptoms, or with any questions or concerns. Compliance is encouraged with any medications and follow up testing that is ordered. It is a privilege to be allowed the opportunity to participate in? your urological care.? Again, if you have any questions or concerns If you have any questions or concerns please do not hesitate to contact me. The office is [phone]. This note is constructed using voice recognition software. While every effort has been made to ensure accuracy supervising law enforcement analyst errors may have been included. Yours sincerely, SHAR Lpoez Coding Level of Care Code Est Pt Level 3 (07145) Diagnoses Kidney stones N20.0 Renal cyst N28.1
== END 2024-03-05 15:03 | disposition home or self-care (01) ==
PROVIDERS: PCP Family Medicine; Visit Provider Nurse Practitioner Family
DX: N20.0 Calculus of kidney (principal); N28.1 Cyst of kidney, acquired; Z13.9 Encounter for screening, unspecified
CPT/HCPCS: 99213

== ENCOUNTER → 2024-03-05 14:27 | Outpatient (BNVA) | payer OTHER, SELFPAY | PROVIDERS: PCP Family Medicine; Visit Provider Nurse Practitioner Family | DX: N28.1 Cyst of kidney, acquired (principal); N20.0 Calculus of kidney | CPT/HCPCS: 81003; 99212 ==

== ENCOUNTER 2024-04-03 11:20 | Outpatient (AMB) | payer OTHER, SELFPAY ==
--- NOTE | 2024-04-03 11:25 | MHC.OFFVISWM ---
VS Expanded 04/03/24 11:36 BP 164/83 H Blood Pressure Location Rt radial Blood Pressure Position Sitting Pulse 67 Pulse Source Pulse Oximeter Temp 98.2 F Temperature Source Temporal Artery Scan Pulse Oximetry 99 Oxygen Delivery Method Room Air Height 5 ft 1 in Weight 128 lb 6.4 oz BMI 24.3 Body Fat % 35.4 Body Fat Mass 45.4 Fat Free Mass 82.8 Visceral Fat Rating 8.0 Body Water % 45.5 Body Water Mass 58.4 Muscle Mass/Score 78.8 Basal Metabolic Rate/Score 1,143 Intake Visit Reasons: OV PO LRYGB 09/26/15 Allergies ibuprofen [IBUPROFEN] Allergy (Intermediate, Verified 04/03/24 11:34) HIVES Medication List - Last Reconciled 04/03/24 by RAULITO Cintron amitriptyline 50 mg PO BEDTIME 30 days bupropion HCl 75 mg PO BID 90 days sertraline 50 mg PO DAILY HPI Comments Details: This?is a?63?yo female who is s/p RYGB 09/26/2015. Presents for 8.5 year post op visit. Weight gain of 8lbs since last OV 6mo ago.? No complaints of nausea, emesis, abdominal pain or reflux, or constipation. Present meal plan includes: at last visit suggested Fairlife shakes 1 or 2 per day for breakfast or lunch and keeping dinner meal as protein/veg takes MVI Pt reports she has changed her eating habits especially in her relationship where she is sharing cooking duties rather than only cooking for herself, increasing portion sizes and having mashed potatoes/rice, thinks she gets enough protein but doesn't really want protein- craves carbs still has a lot of vegetables and fruits Exercise routine includes: was going to but not lately, but also has a treadmill at home [facility] Medical History Benign cardiac murmur Renal calculi Renal cyst Intestinal malabsorption Coccyxdynia Surgical History H/O colonoscopy History of gastric bypass Family History Mother Colon cancer Father Myocardial infarction Substance use disorder Brother Substance use disorder Maternal Aunt History of breast cancer Social History Housing: Condominium Alcohol intake: current Alcohol intake frequency: holidays/special occasions only Patient Tobacco Use Status: Never used Tobacco e-Cigarette/Vaping Use: Never Used Second Hand Smoke Exposure: No service: No Current occupational status: unemployed Current occupational exposures/hazards: No Sexual orientation: Straight/Heterosexual Gender identity: Female Cognitive needs: No Hearing needs: No Vision needs: No Physical Exam Vital Signs: Last Vital Signs Temp 98.2 F 04/03/24 11:36 Pulse 67 04/03/24 11:36 BP 164/83 H 04/03/24 11:36 Pulse Ox 99 04/03/24 11:36 Oxygen Delivery Method Room Air 04/03/24 11:36 BMI result Body Mass Index 24.3 Assessment & Plan Assessment & Plan (1) History of gastric bypass: Comment: 2015 Code(s): Z98.84 - Bariatric surgery status Category: Surgical Plan Discussed multiple options for weight loss- pt certainly needs to reintroduce exercise. She has a treadmill at home. Recommended incorporating protein shakes back into her meal plan in place of whole foods, also should cut back on dinner options and stick to protein/veg. She has done very well with weight loss in the past and recognizes she has changed her habits resulting in some weight gain. Gave recipe book and healthy foods handout. RTC 3mo. I spent a total of 30 minutes reviewing/updating records, examining the patient and counseling the patient on weight management as detailed above.
[2024-04-03 11:36] VITALS: BP 164/83; PULSE 67; TEMP 36.8; O2SAT 99; BMI 24.3
--- OUTSIDE RECORDS SUMMARY | 2024-04-03 12:57 | XMS_ITS | Clinical Summary ---
Author Organization [facility] Address [address] [place] [address] Care Team Providers Care Sales Office Assistant Name Role Phone Unavailable Primary Care Provider Unavailabl e Surgical History Surgery Date Site/Laterality Comments OTHER SURGICAL HISTORY 09/26/2015 PROCEDURE: HISTORY OTHER; COMMENT: laparoscopic bc-en-Y gastric bypass Dr. Sampson Medical History Medical History Date Comments Depression DX:Depression Hypertension 12/17/2020 DX:Hypertension Asthma 12/17/2020 DX:Asthma Steatosis, liver 12/17/2020 DX:Steatosis, l iver Anxiety 12/17/2020 DX:Anxiety Heart murmur 12/17/2020 DX:Heart murmur PTSD (post-traumatic stress disorder) 12/17/2020 DX:PTSD (post-traumatic stress disorder) S/P gastric bypass 12/17/2020 DX:S/P gastri c bypass; COMMENT: Laparoscopic Bc-en Y gastric bypass 2015 Family History Medical History Relation Name Comments Other: heart attack Father Colon cancer Mother Relation Name Status Comments Father Mother Social History Tobacco Use Types Packs/Day Years Used Date Smoking Tobacco: Never Smokeless Tobacco: Never Alcohol Use Standard Drinks/Week Comments Yes 0 (1 standard drink = 0.6 oz pur e alcohol) Comments Unknown Sex and Gender Information Value Date Recorded Sex Assigned at Not on file Legal Sex Female 12:10 PM EST Gender Identity Not on file Sexual Orientation Not on file Obstetrics History Plan of Treatment Health Maintenance Due Date Last Done Comments Breast Cancer Screening 1960 DTaP,Tdap,and Td Vaccines (1 - Tdap) 12/30/1966 Hepatitis A Vaccines (1 of 2 - Risk 2-dose series) 12/30/1978 Pneumococcal Vaccine: 50+ Ye ars (1 of 2 - PCV) 12/30/1978 Pneumococcal Vaccine: Pediat rics (0 to 5 Years) and At-Risk Patients (6 to 64 Years) (1 of 2 - PCV) 12/30/1978 Cervical Cancer Screening: P ap Smear 12/30/1980 Zoster Vaccines (1 of 2) 12/30/2009 Hepatitis B Vaccines (1 of 3 - Risk 3-dose series) 2019 RSV Immunization Patients 60 + Years Old (1 - Risk 60-74 years 1-dose series) 2019 Cholesterol Screening (Lipid Panel) 01/19/2022 Colorectal Cancer Screening: Colonoscopy 01/19/2022 Depression Screening 01/19/2022 HIV Screening 01/19/2022 Hepatitis C Screening 01/19/2022 Social Influencers of Health Screening 01/19/2022 Hypertension/CHF/CAD Annual BMP Blood Test 02/02/2022 COVID-19 Vaccine ( - 2023-2 5 season) 2023 Influenza Vaccine (#1) 2023 HIB Vaccines Aged Out No longer eligi ble based on patient's age to complete this topic HPV Vaccines Aged Out No longer eligi ble based on patient's age to complete this topic IPV Vaccines Aged Out No longer eligi ble based on patient's age to complete this topic MMR Vaccines Aged Out No longer eligi ble based on patient's age to complete this topic Meningococcal ACWY Vaccine Aged Out N o longer eligible based on patient's age to complete this topic Meningococcal B Vacine Aged Out No lo nger eligible based on patient's age to complete this topic RSV Immunization Patients Un marco a 20 months Aged Out No longer eligible b ased on patient's age to complete this topic Varicella Vaccines Aged Out No longer eligible based on patient's age to complete this topic
--- OUTSIDE RECORDS SUMMARY | 2024-04-03 12:58 | XMS_ITS ---
Author Organization [facility] Address [address] [place] [address] Care Team Providers Care Program Control Analyst Name Role Phone Unknown, Unknown Primary Care Provider Unavailab RUBIO Self Unavailable [phone] REASON FOR VISIT cancelled appointment Encounters Encounter Location Date Provider Diagnosis [facility] [address] [place] [address] 11/09/2023 RUBIO VALLADARES Plan Of Treatment No Information Progress Notes * Angy LEUNGDOB: 0 (62 yo F)Acc No.[id number]:11/09/2023 Patient:?Angy LEUNG :1960???Age:62 Y???Sex:Female Address: [place] [address] * true * Date:? Generated for Mejiai deirdre/Christina/eTransmitting on:?04/03/2024 12:58 PM EST
--- OUTSIDE RECORDS SUMMARY | 2024-04-03 12:58 | XMS_ITS ---
Author Organization [facility] Address [address] [place] [address] Care Team Providers Care Molasses And Caramel Operator Name Role Phone Unknown, Unknown Primary Care Provider Unavailab RUBIO Self Unavailable [phone] Allergies Allergen (clinical drug ingredient) Drug/Non Drug Allergy documented on EMR Reaction Allergy Type Onset Date Status ibuprofen Ibuprofen Unknown Drug Allergy Active REASON FOR VISIT WM f/up Medications Medication SIG (Take, Route, Frequency, Duration) Notes Start Date End Date Status Amitriptyline HCl 50 MG 1 tablet at bedt miguel Orally Once a day Active Sertraline HCl 100 MG 1 tablet Orally On ce a day Active Ferrous Sulfate 325 (65 Fe) MG TAKE 1 TABLET BY MOUTH EVERY DAY FOR 30 DAYS for 90 Active Vital Signs Temperature 97.2 degrees Fahrenheit 11/18/19 24 Oximetry 100 % 11/18/2023 Heart Rate 62 /min 11/18/2023 Blood pressure systolic 100 mm Hg 11/18/19 24 Blood pressure diastolic 60 mm Hg 024 Weight 128.4 lbs 11/18/2023 BMI 24.26 kg/m2 11/18/2023 Height 61 in 11/18/2023 Encounters Encounter Location Date Provider Diagnosis [facility] [address] [place] [address] 11/18/2023 RUBIO VALLADARES Dietary counseling a nd surveillance Z71.3 ; Body mass index [BMI] 23.0-23.9, adult Z68.23 ; Generalized anxiety disorder F41.1 ; Major depressive disorder, recurrent, mild F33.0 and Bariatric surgery status Z98.84 Assessments Encounter Date Diagnosis (ICD Code) Assessment Notes Treatment Notes Treatment Clinical Notes Section Notes 11/18/2023 Dietary counseling and surveillance (ICD-10 - Z71.3) Ms. Leung is a 61 year old lady here today for medical weight management. We last saw her in May. She gained 3 lbs since last visit. She is s/p gastric bypass. She was 115 lbs at one point and gained weight since January. Discussed her weight may fluctuate and she will still be in a good range as long as she keeps her weight under 130 lbs. Plan is as follows: Generalized anxiety/Major depressive disorder. Mood stable on current regimen. Dietary recommendations. Food recall was done today and patient advised to be on low calorie, low carbohydrate diet. Restrict calories to less than 1500 kcal in 24 hours. Low glycemic index foods and encouraged. Meal replacements were recommended. Advised to use heus-fbj-hthjyol multivitamins and vitamin D. Advised to use calorie counter and adhere to portion control. Monthly goal is to lose 4-6 pounds Pharmacotherapy. She is not on pharmacotherapy. Exercise. Patient encouraged to increase frequency, intensity and duration of exercise. Encouraged to burn at least 250-500 kcal in one session. Also encouraged to do weight training Assess. Different risk factors discussed with the patient and addressed Advise. She was given clear And specific advise that she will comply with Low-calorie diet and try not to exceed more than 1300 kcal in 24 hours. Agree. Mutually agreed to work together to achieve appropriate goals Assist. Motivational interviewing done. Arrange. Follow-up appointment arranged. Counseling. 20 minutes spent Face to face with the patient more than 50% of time was spent counseling General health concerns discussed with patient. Scribe services used to formulate this note under HIPAA compliance and under [place] law mandated for scribe services. Patient aware of service. Verbal consent and written consent taken from the patient. Patient understands and verbalizes understanding of the scribes services and all questions answered regarding scribes services. Patient agrees to use of scribes services. 11/18/2023 Body mass index [BMI] 23.0-23.9, adult (ICD-10 - Z68.23) Ms. Leung is a 61 year old lady here today for medical weight management. We last saw her in May. She gained 3 lbs since last visit. She is s/p gastric bypass. She was 115 lbs at one point and gained weight since January. Discussed her weight may fluctuate and she will still be in a good range as long as she keeps her weight under 130 lbs. Plan is as follows: Generalized anxiety/Major depressive disorder. Mood stable on current regimen. Dietary recommendations. Food recall was done today and patient advised to be on low calorie, low carbohydrate diet. Restrict calories to less than 1500 kcal in 24 hours. Low glycemic index foods and encouraged. Meal replacements were recommended. Advised to use isgd-umm-ucajsqw multivitamins and vitamin D. Advised to use calorie counter and adhere to portion control. Monthly goal is to lose 4-6 pounds Pharmacotherapy. She is not on pharmacotherapy. Exercise. Patient encouraged to increase frequency, intensity and duration of exercise. Encouraged to burn at least 250-500 kcal in one session. Also encouraged to do weight training Assess. Different risk factors discussed with the patient and addressed Advise. She was given clear And specific advise that she will comply with Low-calorie diet and try not to exceed more than 1300 kcal in 24 hours. Agree. Mutually agreed to work together to achieve appropriate goals Assist. Motivational interviewing done. Arrange. Follow-up appointment arranged. Counseling. 20 minutes spent Face to face with the patient more than 50% of time was spent counseling General health concerns discussed with patient. Scribe services used to formulate this note under HIPAA compliance and under [place] law mandated for scribe services. Patient aware of service. Verbal consent and written consent taken from the patient. Patient understands and verbalizes understanding of the scribes services and all questions answered regarding scribes services. Patient agrees to use of scribes services. 11/18/2023 Generalized anxiety disorder (ICD-10 - F41.1) Ms. Leung is a 61 year old lady here today for medical weight management. We last saw her in May. She gained 3 lbs since last visit. She is s/p gastric bypass. She was 115 lbs at one point and gained weight since January. Discussed her weight may fluctuate and she will still be in a good range as long as she keeps her weight under 130 lbs. Plan is as follows: Generalized anxiety/Major depressive disorder. Mood stable on current regimen. Dietary recommendations. Food recall was done today and patient advised to be on low calorie, low carbohydrate diet. Restrict calories to less than 1500 kcal in 24 hours. Low glycemic index foods and encouraged. Meal replacements were recommended. Advised to use zrbo-kvy-vrimxki multivitamins and vitamin D. Advised to use calorie counter and adhere to portion control. Monthly goal is to lose 4-6 pounds Pharmacotherapy. She is not on pharmacotherapy. Exercise. Patient encouraged to increase frequency, intensity and duration of exercise. Encouraged to burn at least 250-500 kcal in one session. Also encouraged to do weight training Assess. Different risk factors discussed with the patient and addressed Advise. She was given clear And specific advise that she will comply with Low-calorie diet and try not to exceed more than 1300 kcal in 24 hours. Agree. Mutually agreed to work together to achieve appropriate goals Assist. Motivational interviewing done. Arrange. Follow-up appointment arranged. Counseling. 20 minutes spent Face to face with the patient more than 50% of time was spent counseling General health concerns discussed with patient. Scribe services used to formulate this note under HIPAA compliance and under [place] law mandated for scribe services. Patient aware of service. Verbal consent and written consent taken from the patient. Patient understands and verbalizes understanding of the scribes services and all questions answered regarding scribes services. Patient agrees to use of scribes services. 11/18/2023 Major depressive disorder, recurrent, mild (ICD-10 - F33.0) Ms. Leung is a 61 year old lady here today for medical weight management. We last saw her in May. She gained 3 lbs since last visit. She is s/p gastric bypass. She was 115 lbs at one point and gained weight since January. Discussed her weight may fluctuate and she will still be in a good range as long as she keeps her weight under 130 lbs. Plan is as follows: Generalized anxiety/Major depressive disorder. Mood stable on current regimen. Dietary recommendations. Food recall was done today and patient advised to be on low calorie, low carbohydrate diet. Restrict calories to less than 1500 kcal in 24 hours. Low glycemic index foods and encouraged. Meal replacements were recommended. Advised to use obzd-cqh-jhpgxgn multivitamins and vitamin D. Advised to use calorie counter and adhere to portion control. Monthly goal is to lose 4-6 pounds Pharmacotherapy. She is not on pharmacotherapy. Exercise. Patient encouraged to increase frequency, intensity and duration of exercise. Encouraged to burn at least 250-500 kcal in one session. Also encouraged to do weight training Assess. Different risk factors discussed with the patient and addressed Advise. She was given clear And specific advise that she will comply with Low-calorie diet and try not to exceed more than 1300 kcal in 24 hours. Agree. Mutually agreed to work together to achieve appropriate goals Assist. Motivational interviewing done. Arrange. Follow-up appointment arranged. Counseling. 20 minutes spent Face to face with the patient more than 50% of time was spent counseling General health concerns discussed with patient. Scribe services used to formulate this note under HIPAA compliance and under [place] law mandated for scribe services. Patient aware of service. Verbal consent and written consent taken from the patient. Patient understands and verbalizes understanding of the scribes services and all questions answered regarding scribes services. Patient agrees to use of scribes services. 11/18/2023 Bariatric surgery status (ICD-10 - Z98.84) Ms. Leung is a 61 year old lady here today for medical weight management. We last saw her in May. She gained 3 lbs since last visit. She is s/p gastric bypass. She was 115 lbs at one point and gained weight since January. Discussed her weight may fluctuate and she will still be in a good range as long as she keeps her weight under 130 lbs. Plan is as follows: Generalized anxiety/Major depressive disorder. Mood stable on current regimen. Dietary recommendations. Food recall was done today and patient advised to be on low calorie, low carbohydrate diet. Restrict calories to less than 1500 kcal in 24 hours. Low glycemic index foods and encouraged. Meal replacements were recommended. Advised to use rihr-fug-bdgxzxy multivitamins and vitamin D. Advised to use calorie counter and adhere to portion control. Monthly goal is to lose 4-6 pounds Pharmacotherapy. She is not on pharmacotherapy. Exercise. Patient encouraged to increase frequency, intensity and duration of exercise. Encouraged to burn at least 250-500 kcal in one session. Also encouraged to do weight training Assess. Different risk factors discussed with the patient and addressed Advise. She was given clear And specific advise that she will comply with Low-calorie diet and try not to exceed more than 1300 kcal in 24 hours. Agree. Mutually agreed to work together to achieve appropriate goals Assist. Motivational interviewing done. Arrange. Follow-up appointment arranged. Counseling. 20 minutes spent Face to face with the patient more than 50% of time was spent counseling General health concerns discussed with patient. Scribe services used to formulate this note under HIPAA compliance and under [place] law mandated for scribe services. Patient aware of service. Verbal consent and written consent taken from the patient. Patient understands and verbalizes understanding of the scribes services and all questions answered regarding scribes services. Patient agrees to use of scribes services. Plan Of Treatment Next Appt Details Follow Up: prn, Reason: Progress Notes * Angy LEUNGDOB: 0 (62 yo F)Acc No.[id number]:11/18/2023 Patient:?Angy LEUNG Provider:?RUBIO VALLADARES MD :1960???Age:62 Y???Sex:Female D ate:11/18/2023 Address:[address] [place], [place] [id number] Pcp:Unknown Unknown Subjective: * Chief Complaints: * ???WM f/up * HPI: ???F/U Obesity:?62 year old female presents with c/o Patient is here for f/u on weight management.?Patient has lost weight?We last saw her in May. She gained 3 lbs since last visit.?patient is on Meal replacement?Low calorie diet.?Patient is exercising?admits.?frequency of exercise?walks as much as she can, has a membership at a gym.?patient on pharmacotherapy?No.?tolerating medication? .?Sleep pattern? Good.? She was 115 lbs at one point and gained weight since January. * ROS:?General/Constitutional:?Overall health?Good.?Change in appetite?denies.?Chills?denies.?Fever?denies.?Night sweats?denies.?Sleep disturbance?denies.?Weight gain?denies.?Weight loss?denies.?Neurologic:?Difficulty speaking?denies.?Dizziness?denies.?Gait abnormality?denies.?Headache?denies.?Loss of strength?denies.?Memory loss?denies.?Seizures?denies.?Tingling/Numbness?denies ?.?Ophthalmologic:?Blurred vision?denies.?Discharge?denies.?Dry eye?denies.?Red eye?denies.?ENT:?Change in Voice?Denies.?Cold Symptoms?Denies.?Cough?Denies.?Dizziness?Denies.?Nasal Congestion?Denies.?Otalgia?Denies.?Nosebleed?denies.?Snoring?denies.?Cardiovascular:?Diaphoresis?Denies.?Pedal Edema?Denies.?PND (Paroxsymal nocturnal dyspnea)?Denies.?Chest pain?denies.?Difficulty laying flat?denies.?Dyspnea on exertion?denies.?Heart murmur?denies.?Orthopnea?denies.?Respiratory:?Snoring?denies.?Asthma?denies.?Cough?denies.?Shortness of breath with exertion?denies.?Sputum production?denies.?Wheezing?denies.?Gastrointestinal:?Change in bowel habits?denies.?Constipation?denies.?Decreased appetite?denies.?Diarrhea?denies.?Heartburn?denies.?Nausea?denies.?Vomiting?santiago es.?Musculoskeletal:?tingling/numbness?Denies.?myalgias?Denies.?Joint Swelling?Denies.?extremeties?normal.?Arthritis?denies.?Back problems?denies.?Carpal tunnel?denies.?Joint stiffness?denies.?Muscle aches?denies.?Endocrine:?Bowel Changes?Denies.?Breast Discharge?Denies.?poor libido?Denies.?Cold intolerance?denies.?Excessive sweating?denies.?Excessive thirst?denies.?Frequent urination?denies.?Thyroid problems?denies.?Skin:?Bruising?Denies.?Eczema?denies.?Hair changes?denies.?Rash?denies.?Skin lesion(s)?denies.?Psychiatric:?Anxiety?denies.?Depressed mood?denies.?Difficulty sleeping?denies.?Nervous breakdown?denies.?Substance abuse?denies.?Urology:?abnormal menstrual bleeding?denies.?blood in urine?denies.?burning on urination?denies.?difficulty urinating?denies.?discharge?denies.?dysuria?denies.? * Medical History:? * Medications:?TakingAmitripty line HCl 50 MG Tablet 1 tablet at bedtime Orally Once a day Sertraline HCl 100 MG Tablet 1 tablet Orally Once a day Ferrous Sulfate 325 (65 Fe) MG Tablet TAKE 1 TABLET BY MOUTH EVERY DAY FOR 30 DAYS Medication List reviewed and reconciled with the patientTaking Amitriptyline HCl 50 MG Tablet 1 tablet at bedtime Orally Once a day Taking Sertraline HCl 100 MG Tablet 1 tablet Orally Once a day Taking Ferrous Sulfate 325 (65 Fe) MG Tablet TAKE 1 TABLET BY MOUTH EVERY DAY FOR 30 DAYS Medication List reviewed and reconciled with the patient * Allergies:?Ibuprofen: Allerg yno[Allergies Verified] Objective: * Vitals:?Temp:97.2F, Oxygen s at %:100%, HR:62/min, BP:100/60mm Hg, Wt:128.4lbs, BMI:24.26Index, Ht: 61 in. * Examination: ???General Examination: ?Psychiatry?Normal.?GENERAL APPEARANCE:?well developed, well nourished, in no acute distress.?HEAD:?normocephalic, atraumatic.?EYES:?pupils equal, round, reactive to light and accommodation, sclera non-icteric.?EARS:?normal.?ORAL CAVITY:?mucosa moist.?THROAT:?clear.?OROPHARYNX?Normal.?SINUSES?Normal.?NECK/THYROID:?neck supple, full range of motion, no cervical lymphadenopathy.?SKIN:?warm and dry, no suspicious lesions.?HEART:?regular rate and rhythm, S1, S2 normal,??,?no murmurs.?LUNGS:?clear to auscultation bilaterally.?ABDOMEN:?soft, nontender, nondistended, bowel sounds present, normal.?EXTREMITIES:?normal.?PERIPHERAL PULSES:?normal.?NEUROLOGIC:?nonfocal, motor strength normal upper and lower extremities, sensory exam intact.?PODIATRIC:?NORMAL?,?BILATERALLY.? Assessment: * Assessment: 1.?Body mass index [BMI] 23. 0-23.9, adult - Z68.23 (Primary)?2.?Dietary counseling and surveillance - Z71.3?3.?Generalized anxiety disorder - F41.1?4.?Major depressive disorder, recurrent, mild - F33.0?5.?Bariatric surgery status - Z98.84? Ms. Leung is a 61 year old l popeye here today for medical weight management. We last saw her in May. She gained 3 lbs since last visit. She is s/p gastric bypass. She was 115 lbs at one point and gained weight since January. Discussed her weight may fluctuate and she will still be in a good range as long as she keeps her weight under 130 lbs. Plan is as follows: Generalized anxiety/Major depressive disorder. Mood stable on current regimen. Dietary recommendations. Food recall was done today and patient advised to be on low calorie, low carbohydrate diet. Restrict calories to less than 1500 kcal in 24 hours. Low glycemic index foods and encouraged. Meal replacements were recommended. Advised to use kqlf-nhp-irrtsxc multivitamins and vitamin D. Advised to use calorie counter and adhere to portion control. Monthly goal is to lose 4-6 pounds Pharmacotherapy. She is not on pharmacotherapy. Exercise. Patient encouraged to increase frequency, intensity and duration of exercise. Encouraged to burn at least 250-500 kcal in one session. Also encouraged to do weight training Assess. Different risk factors discussed with the patient and addressed Advise. She was given clear And specific advise that she will comply with Low- calorie diet and try not to exceed more than 1300 kcal in 24 hours. Agree. Mutually agreed to work together to achieve appropriate goals Assist. Motivational interviewing done. Arrange. Follow-up appointment arranged. Counseling. 20 minutes spent Face to face with the patient more than 50% of time was spent counseling General health concerns discussed with patient. Scribe services used to formulate this note under HIPAA compliance and under [place] law mandated for scribe services. Patient aware of service. Verbal consent and written consent taken from the patient. Patient understands and verbalizes understanding of the scribes services and all questions answered regarding scribes services. Patient agrees to use of scribes services. Plan: * Treatment: * Procedure Codes:?3078F DIAST BP < 80 MM [id number] SYST BP LT 130 MM HG * Follow Up:?prn * Images: * Sign off status: Completed true * Provider:?RUBIO VALLADARES MD Date:?11/17 Generated for Karly gilmore/Christina/Danielitting on:?04/03/2024 12:57 PM EST History and Physical Notes * HPI (History of Present Illness) Category Sub-Category Detail Notes Category Not es F/U Obesity Patient is here for f/u on weight management She was 115 lbs at one point and gained weight since January. Patient has lost weight We last saw her in May. She gained 3 lbs since last visit patient is on Meal replacement Low calor ie diet Patient is exercising admits frequency of exercise walks as much as s he can, has a membership at a gym patient on pharmacotherapy No tolerating medication Sleep pattern Good Examination Category Sub-Category Detail Notes Category Not es General Examination GENERAL APPEARANCE: well dev eloped, well nourished, in no acute distress HEAD: normocephalic, atrau matic EYES: pupils equal, round, reactive to light and accommodation, sclera non-icteric EARS: normal THROAT: clear NECK/THYROID: neck supple, full ra nge of motion, no cervical lymphadenopathy HEART: regular rate and rhy thm, S1, S2 normal, , no murmurs LUNGS: clear to auscultatio n bilaterally ABDOMEN: soft, nontender, non distended, bowel sounds present, normal NEUROLOGIC: nonfocal, motor stre ngth normal upper and lower extremities, sensory exam intact SKIN: warm and dry, no aguilar picious lesions EXTREMITIES: normal PERIPHERAL PULSES: normal ORAL CAVITY: mucosa moist PODIATRIC: NORMAL , BILATERALLY Psychiatry Normal OROPHARYNX Normal SINUSES Normal
--- OUTSIDE RECORDS SUMMARY | 2024-04-03 12:58 | XMS_ITS | Patient Health Record ---
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 Name Role Phone Unknown, Unknown Primary Care Provider Unavailab RUBIO Self Unavailable [phone] Allergies Allergen (clinical drug ingredient) Drug/Non Drug Allergy documented on EMR Reaction Allergy Type Onset Date Status ibuprofen Ibuprofen Unknown Drug Allergy Active Reason For Referral No Information Medications Medication SIG (Take, Route, Frequency, Duration) Notes Start Date End Date Status Amitriptyline HCl 50 MG 1 tablet at bedt miguel Orally Once a day Active Sertraline HCl 100 MG 1 tablet Orally On ce a day Active Ferrous Sulfate 325 (65 Fe) MG TAKE 1 TABLET BY MOUTH EVERY DAY FOR 30 DAYS for 90 Active Immunizations Vaccine Route Administration Date Status Comme nts COVID Unknown 05/21/2020 Administered Pfizer COVID Unknown 06/11/2020 Administered Pfizer COVID Unknown 01/22/2021 Administered Social History Tobacco Use: Social History Observation Description Date Details (start date - stop date) Never Smoker NA - NA Tobacco Use/Smoking Question Answer Notes Are you a nonsmoker Alcohol Screen (Audit-C) Question Answer Notes Did you have a drink containing alcohol in the p ast year? No Points 0 Interpretation Negative Problems Problem Type SNOMED Code ICD Code Onset Dates Problem Status W/U Status Risk Notes Problem Mild recurrent major depression (91188312) Major depressive disorder, recurrent, mild (F33.0) Active confirmed Problem Generalized anxiety disorder (87645108) Generalized anxiety disorder (F41.1) Active confirmed Problem History of bariatric surgical procedure (221692836) Bariatric surgery status (Z98.84) Active confirmed Vital Signs Heart Rate 62 /min 11/18/2023 Temperature 97.2 degrees Fahrenheit 11/18/2023 Blood pressure diastolic 60 mm Hg 11/18/2023 Oximetry 100 % 11/18/2023 Height 61 in 11/18/2023 Blood pressure systolic 100 mm Hg 11/18/2023 Weight 128.4 lbs 11/18/2023 BMI 24.26 kg/m2 11/18/2023 Encounters Encounter Location Date Provider Diagnosis [facility] [address] [place] [address] 11/18/2023 RUBIO VALLADARES Dietary counseling a nd surveillance Z71.3 ; Body mass index [BMI] 23.0-23.9, adult Z68.23 ; Generalized anxiety disorder F41.1 ; Major depressive disorder, recurrent, mild F33.0 and Bariatric surgery status Z98.84 [facility] [address] [place] [address] 11/09/2023 RUBIO VALLADARES Assessments Encounter Date Diagnosis (ICD Code) Assessment [...] Meal replacements were recommended. Advised to use jeva-qfe-tsbudvw multivitamins and vitamin D. Advised to use [...] this note under HIPAA compliance and under [place] law mandated for scribe services. Patient aware [...] Meal replacements were recommended. Advised to use yyla-fsa-dhrzukl multivitamins and vitamin D. Advised to use [...] this note under HIPAA compliance and under [place] law mandated for scribe services. Patient aware [...] Meal replacements were recommended. Advised to use ynat-pvy-nwthlyk multivitamins and vitamin D. Advised to use [...] this note under HIPAA compliance and under [place] law mandated for scribe services. Patient aware [...] Meal replacements were recommended. Advised to use qbro-vyl-mjkjbnk multivitamins and vitamin D. Advised to use [...] this note under HIPAA compliance and under [place] law mandated for scribe services. Patient aware [...] Meal replacements were recommended. Advised to use fakw-dlz-xnnfjwm multivitamins and vitamin D. Advised to use [...] this note under HIPAA compliance and under [place] law mandated for scribe services. Patient aware of service. Verbal consent and written consent taken from the patient. Patient understands and verbalizes understanding of the scribes services and all questions answered regarding scribes services. Patient agrees to use of scribes services. Plan Of Treatment No Information Insurance Providers Payer Name Payer Address Payer Phone Subscriber Number Group Number Insured Name Patient Relationship to Insured Coverage Start Date Coverage End Date [facility] [address] [place] [phone] [id number] Angy Leung Self - patient is the insured Medical (General) History Medical History History ICD Code Anxiety disorder depression Surgical History Surgery Date(Month/Year) [place] [facility] [place] 265 lbs 201 6
== END 2024-04-03 13:46 | disposition home or self-care (01) ==
PROVIDERS: PCP Family Medicine; Visit Provider Physician Assistant Surgical
DX: Z71.3 Dietary counseling and surveillance (principal); Z98.84 Bariatric surgery status
CPT/HCPCS: 99214; G2211

== ENCOUNTER → 2024-04-03 11:20 | Outpatient (BNVA) | payer OTHER, SELFPAY | PROVIDERS: PCP Family Medicine; Visit Provider Physician Assistant Surgical | DX: D64.9 Anemia, unspecified (principal); E78.00 Pure hypercholesterolemia, unspecified; E53.8 Deficiency of other specified B group vitamins | CPT/HCPCS: 99212 ==

== ENCOUNTER 2024-04-03 14:53 | Outpatient (AMB) | payer OTHER, SELFPAY ==
--- NOTE | 2024-04-03 14:50 | MHC.PC.OV ---
Intake Visit Reasons: f/u CPE-labs via telemedicine Allergies ibuprofen [IBUPROFEN] Allergy (Intermediate, Verified 04/03/24 14:50) HIVES Medication List - Last Reconciled 04/03/24 by Parag Ledezma MD amitriptyline 50 mg PO BEDTIME 30 days bupropion HCl 75 mg PO BID 90 days sertraline 50 mg PO DAILY Tobacco use date assessed: 02/28/24 Dental Screening Dental Screen Date: 02/28/24 HPI f/u CPE-labs via telemedicine HPI Details 63 y/o female presents to f/u labs via telemedicine. Labs drawn 03/01/24. Reviewed labs with pt. Stable mild anemia. Triglycerieds 66. TC 212. LDL 116. HDL 83. PFSH Medical History Benign cardiac murmur Renal calculi Renal cyst Intestinal malabsorption Coccyxdynia Surgical History H/O colonoscopy History of gastric bypass Family History Mother Colon cancer Father Myocardial infarction Substance use disorder Brother Substance use disorder Maternal Aunt History of breast cancer Social History Housing: Condominium Alcohol intake: current Alcohol intake frequency: holidays/special occasions only Patient Tobacco Use Status: Never used Tobacco e-Cigarette/Vaping Use: Never Used Second Hand Smoke Exposure: No service: No Current occupational status: unemployed Current occupational exposures/hazards: No Sexual orientation: Straight/Heterosexual Gender identity: Female Cognitive needs: No Hearing needs: No Vision needs: No Questionnaire Thrive Questionnaire Date Thrive assessed: 02/28/24 DANIEL-7 AMB Questionnaire DANIEL-7 Date DANIEL - 7 assessed: 02/28/24 Source: Developed by Drs. Sarwat Muhammad, Nancy Rodriguez, Sandro Borrego and colleagues, with an educational trever from [employer]. Review of Systems Const Denies chills, Denies fatigue, Denies fever(s), Denies headache(s) and Denies weakness ENT Denies dizziness and Denies headache(s) Card Denies dyspnea Resp Denies cough, Denies dyspnea, Denies wheezing and Denies other (shortness of breath) Musc Denies numbness and Denies tingling Neuro Denies dizziness, Denies headache(s), Denies numbness, Denies tingling and Denies weakness Psych Denies anxiety and Denies depression Endo Denies fatigue Aller/Immun Denies wheezing Physical exam (Primary Care) Tobacco/Smoking Status: Tobacco use Status Tobacco use date assessed 02/28/24 04/03/24 14:50 Patient Tobacco Use Status Never used Tobacco 04/03/24 14:50 e-Cigarette/Vaping Use Never Used 04/03/24 14:50 Thrive Assessment: Date of Thrive Assessment Date Thrive assessed 02/28/24 04/03/24 14:50 Telehealth Telehealth Telehealth Platform: Telephone Location of provider rendering services: practice address Location of patient: address on file Patient Identification confirmed using: Name, : Yes Telehealth method: voice only Patient verbally consented to treatment: Yes Patient verbally consented to billing insurance company: Yes Patient informed of any privacy concerns related to visit: Yes Minutes spent on Phone/Video with Pt.: 7 Coding Level of Care Code Tele Est Pt Level 2 (05595) Diagnoses Mild anemia D64.9 Elevated LDL cholesterol level E78.00 Assessment & Plan Assessment & Plan (1) Mild anemia: Code(s): D64.9 - Anemia, unspecified Category: Medical Plan: Mild?stable?normocytic?anemia. Patient?has?had?a?bariatric?procedure She?can?try?OTC?B12?and?iron?as?she?prefers Will?recheck?lab?work?prior?to?next?visit?and?if?needed?will?consider?prescriptions. (2) Elevated LDL cholesterol level: Code(s): E78.00 - Pure hypercholesterolemia, unspecified Category: Medical Plan: Mildly?elevated?LDL?cholesterol.??HDL?ratios?are?good No?indication?for?a?medicine?at?this?time Advised?a?diet?lower?in?saturated?fats?and?cholesterol Orders: Orders Complete Blood Count Auto Diff Today D64.9 - Anemia, unspecified, Z00.00 - Encounter for general adult medical examination without abnormal findings Vitamin B12 and Folate Today D64.9 - Anemia, unspecified, E53.8 - Deficiency of other specified B group vitamins IRON PROFILE Today D64.9 - Anemia, unspecified Ferritin Today D64.9 - Anemia, unspecified Comprehensive Met. Panel Today D64.9 - Anemia, unspecified Reticulocyte Count Today D64.9 - Anemia, unspecified
--- OUTSIDE RECORDS SUMMARY | 2024-04-03 15:44 | XMS_ITS | Clinical Summary ---
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
== END 2024-04-03 17:05 | disposition home or self-care (01) ==
LOC: HO.HMCFM 14:53
PROVIDERS: PCP Family Medicine; Visit Provider Family Medicine
DX: D64.9 Anemia, unspecified (principal); E78.00 Pure hypercholesterolemia, unspecified